=== PATIENT | female | born 1990 | race Hispanic/Latino ===

== ENCOUNTER 2017-12-03 04:19 | Emergency (ER) | payer SELFPAY ==
[2017-12-03] MEDS ORDERED: KETOROLAC 30 MG/ML INJ ONE (04:43)
[2017-12-03] MEDS ORDERED: ONDANSETRON 4 MG/2 ML VIAL ONE (04:43)
[2017-12-03 04:51] LABS: Absolute Lymphocytes (CBC) 2.5 K/uL (0.7-4.9); Absolute Monocytes 0.6 K/uL (0.1-1.3); Absolute Neutrophil 5.6 K/uL (1.8-8.0); Basophils % 0.6 % (0-1.3); Eosinophils % 2.8 % (0-4.4); Hematocrit 42.2 % (36.0-45.0); Lymphocytes % 27.4 % (15.3-44.8); MCH 30.9 pg (27.0-35.0); MPV 7.6 fL (7.6-11.3); Monocytes % 6.5 % (3.3-12.3); RBC Red Blood Cell Count 4.74 M/uL (3.86-4.86)
[2017-12-03 05:18] LABS: Albumin 4.7 g/dL (3.2-5.5); Bilirubin Direct 0.2 mg/dL (0-0.2); Bilirubin Total 0.4 mg/dL (0.3-1.2); Potassium 4.4 mEq/L (3.6-5.0)
[2017-12-03 05:23] LABS: Urine Blood NEGATIVE (NEG); Urine Glucose NEGATIVE (NEG); Urine Protein NEGATIVE (NEG); Urine pH 7.5 (5.0-7.0)
[2017-12-03 05:26] LABS: Urine Amorphous Sediment 3+ /HPF (NONE SEEN); Urine Bacteria <20 /HPF (<20); Urine RBC NONE SEEN /HPF (NONE SEEN)
[2017-12-03 05:27] LABS: Urine Culture Reflex Order NOT NEEDED
--- NOTE | 2017-12-03 06:32 | ER ---
Nurse's Notes [facility] Name: Guerda Cooper Age: 27 yrs Sex: Female : 1990 Arrival Date: 12/03/2017 Time: 04:20 Bed 6 Private MD: Diagnosis: Biliary Colic Presentation: 12/03 04:34 Presenting complaint: Patient states: "I have gallstones and the pain is getting lp1 worse"; States being seen at [place] [facility] 1 month ago and diagnosed with gallstones, unable to follow-up, pain worsening and more frequent. Transition of care: patient was not received from another setting of care. Onset of symptoms was December 03, 2017 at 01:00. Risk Assessment: Do you want to hurt yourself or someone else? Patient reports no desire to harm self or others. Initial Sepsis Screen: Does the patient meet any 2 criteria? No. Patient's initial sepsis screen is negative. Does the patient have a suspected source of infection? No. Patient's initial sepsis screen is negative. Care prior to arrival: None. 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 - Social history:: Smoking status: Patient/guardian denies using tobacco. - Ebola Screening: : No symptoms or risks identified at this time. Screenin:37 Abuse screen: Denies threats or abuse. Denies injuries from another. Nutritional lp1 screening: No deficits noted. Tuberculosis screening: No symptoms or risk factors identified. Fall Risk None identified. Assessment: 04:49 General: Appears uncomfortable, Behavior is calm, cooperative. Pain: Complains of pain mg2 in right upper quadrant Pain does not radiate. Pain currently is 10 out of 10 on a pain scale. Quality of pain is described as aching, Pain began Is intermittent. 04:50 General: Appears uncomfortable, Behavior is appropriate for age. Pain: Complains of ea pain in right upper quadrant Pain does not radiate. Pain currently is 10 out of 10 on a pain scale. Quality of pain is described as aching, stabbing, Is continuous. Neuro: Level of Consciousness is awake, alert, obeys commands, Oriented to person, place, time, situation. Cardiovascular: Heart tones S1 S2 present Patient's skin is warm and dry. Respiratory: Airway is patent Respiratory effort is even, unlabored, Respiratory pattern is regular, symmetrical, Breath sounds are clear bilaterally. GI: Abdomen is non-distended, Bowel sounds present X 4 quads. Abd is soft X 4 quads Abdomen is tender to palpation in right upper quadrant. : No signs and/or symptoms were reported regarding the genitourinary system. EENT: No signs and/or symptoms were reported regarding the EENT system. Derm: Skin is dry, Skin is normal, Skin temperature is warm. Musculoskeletal:. Musculoskeletal: Circulation, motion, and sensation intact. 05:30 Reassessment: Patient and/or family updated on plan of care and expected duration. Pain ea level reassessed. Patient is alert, oriented x 3, equal unlabored respirations, skin warm/dry/pink. 06:46 Reassessment: Patient and/or family updated on plan of care and expected duration. Pain ea level reassessed. Patient is alert, oriented x 3, equal unlabored respirations, skin warm/dry/pink. Discharge instructions given to patient, verbalized the understanding of instruction. Vital Signs: 04:35 BP 162 / 96; Pulse 81; Resp 16; Temp 98.2(O); Pulse Ox 100% on R/A; Weight 81.65 kg; lp1 Height 5 ft. 1 in. (154.94 cm); Pain 10/10; 06:21 BP 141 / 91; Pulse 80; Resp 18; Pulse Ox 100% on R/A; Pain 8/10; mg2 04:35 Body Mass Index 34.01 (81.65 kg, 154.94 cm) lp1 ED Course: 04:20 Patient arrived in ED. am2 04:25 Mey Galloway, TESFAYE is Primary Nurse. ea 04:27 Joe Pires MD is Attending Physician. ps1 04:35 Triage completed. lp1 04:35 Arm band placed on left wrist. lp1 04:37 Patient has correct armband on for positive identification. Placed in gown. Bed in low lp1 position. Call light in reach. Pulse ox on. NIBP on. 04:48 Inserted saline lock: 20 gauge in left antecubital area, using aseptic technique. Blood mg2 collected. by TESFAYE Mathias. 06:47 No provider procedures requiring assistance completed. IV discontinued, intact, ea bleeding controlled, No redness/swelling at site. Pressure dressing applied. Administered Medications: 04:47 Drug: Zofran 4 mg Route: IVP; Site: left antecubital; mg2 06:08 Follow up: Response: No adverse reaction; Nausea is decreased; Vomiting decreased mg2 04:48 Drug: TORadol 30 mg Route: IVP; Site: left antecubital; mg2 06:20 Follow up: Response: No adverse reaction; Pain is unchanged, physician notified mg2 06:43 Drug: [place] (7.5 mg-325 mg) 1 tabs Route: PO; ea 06:49 Follow up: Response: Medication administered at discharge. ea Outcome: 06:31 Discharge ordered by . ps1 06:47 Discharged to home ambulatory, with family. ea 06:47 Condition: improved 06:47 Discharge instructions given to patient, Instructed on discharge instructions, follow up and referral plans. Demonstrated understanding of instructions, follow-up care. 06:49 Patient left the ED. ea Signatures: Ana Oliva RN RN lp1 Ida Venegas am2 Mey Galloway RN RN ea Joe Pires MD MD ps1 Zachery Fuller RN RN mg2
--- NOTE | 2017-12-03 06:32 | EDPHYS ---
Physician Documentation [facility] Name: Guerda Cooper Age: 27 yrs Sex: Female : 1990 Arrival Date: 12/03/2017 Time: 04:20 Bed 6 Private MD: ED Physician Joe Pires HPI: 12/03 04:33 This 27 yrs old Female presents to ER via Unassigned with complaints of Flank ps1 Pain. 04:33 Pain localized to RUQ. Patient has a known history of biliary colic. Patient was seen ps1 and evaluated at [facility] a month ago for same symptoms and was instructed to follow up with a surgeon but has not 2/2 lack of insurance. Pain is the same. Patient states that she is only eating vegetables and has avoided fatty foods. Pain rated as severe. No fever. No jaundice. . 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 - Social history:: Smoking status: Patient/guardian denies using tobacco. - Ebola Screening: : No symptoms or risks identified at this time. ROS: 04:33 Constitutional: Negative for fever, chills, and weight loss, Eyes: Negative for injury, ps1 pain, redness, and discharge, Cardiovascular: Negative for chest pain, palpitations, and edema, Respiratory: Negative for shortness of breath, cough, wheezing, and pleuritic chest pain, : Negative for injury, bleeding, discharge, and swelling, MS/Extremity: Negative for injury and deformity, Skin: Negative for injury, rash, and discoloration. 04:33 Abdomen/GI: Positive for abdominal pain, nausea. Exam: 04:33 Constitutional: This is a well developed, well nourished patient who is awake, alert, ps1 and in no acute distress. Head/Face: Normocephalic, atraumatic. Eyes: Pupils equal round and reactive to light, extra-ocular motions intact. Lids and lashes normal. Conjunctiva and sclera are non-icteric and not injected. Chest/axilla: Normal chest wall appearance and motion. Nontender with no deformity. No lesions are appreciated. Cardiovascular: Regular rate and rhythm. No gallops, murmurs, or rubs. Normal PMI, no JVD. No pulse deficits. Respiratory: Lungs have equal breath sounds bilaterally, clear to auscultation and percussion. No rales, rhonchi or wheezes noted. No increased work of breathing, no retractions or nasal flaring. 04:33 Abdomen/GI: Inspection: abdomen appears normal, Palpation: moderate abdominal tenderness, in the right upper quadrant. Vital Signs: 04:35 BP 162 / 96; Pulse 81; Resp 16; Temp 98.2(O); Pulse Ox 100% on R/A; Weight 81.65 kg; lp1 Height 5 ft. 1 in. (154.94 cm); Pain 10/10; 06:21 BP 141 / 91; Pulse 80; Resp 18; Pulse Ox 100% on R/A; Pain 8/10; mg2 04:35 Body Mass Index 34.01 (81.65 kg, 154.94 cm) lp1 MDM: 05:10 Patient medically screened. ps1 06:25 Data reviewed: vital signs, nurses notes, lab test result(s). ED course: point of care ps1 limited ultrasound of the abdomen performed. Gallbladder stones observed. No pericolicystic fluid. GB wall .5mm. No CBD dilitation. Appears to be cholelithiasis without cholecystitis. 12/03 04:38 Order name: Urine Dipstick--Ancillary (enter results); Complete Time: 05: 2 12/03 04:38 Order name: Urine --Ancillary (enter results); Complete Time: 05:29 2 12/03 04:39 Order name: CBC with Diff; Complete Time: 05:10 ps1 12/03 04:39 Order name: Hepatic Function; Complete Time: 05: ps1 12/03 04:39 Order name: Lipase; Complete Time: 05: ps1 12/03 04:39 Order name: Urine Microscopic Only; Complete Time: 05:29 ps1 12/03 04:39 Order name: IV Saline Lock; Complete Time: 04:48 ps1 12/03 04:39 Order name: Labs collected and sent; Complete Time: 04:48 ps1 12/03 04:39 Order name: Urine Dipstick-Ancillary (obtain specimen); Complete Time: 04:48 ps1 12/03 04:39 Order name: CMP; Complete Time: 05:21 ps1 Administered Medications: 04:47 Drug: Zofran 4 mg Route: IVP; Site: left antecubital; mg2 06:08 Follow up: Response: No adverse reaction; Nausea is decreased; Vomiting decreased mg2 04:48 Drug: TORadol 30 mg Route: IVP; Site: left antecubital; mg2 06:20 Follow up: Response: No adverse reaction; Pain is unchanged, physician notified mg2 06:43 Drug: Cactus (7.5 mg-325 mg) 1 tabs Route: PO; ea 06:49 Follow up: Response: Medication administered at discharge. ea Disposition: 12/03/17 06:31 Discharged to Home. Impression: Biliary Colic. - Condition is Stable. - Discharge Instructions: Biliary Colic. - Work release form, Medication Reconciliation Form, Thank You Letter, Antibiotic Education, Prescription Opioid Use form. - Follow up: Private Physician; When: Ronald Evangelista MD [address] [place] [address]; Reason: Further diagnostic work-up, Continuance of care. - Problem is an acute exacerbation. - Symptoms are unchanged. Signatures: Dispatcher [employer] EDMS Ana Oliva RN RN lp1 Mey Galloway RN RN ea Singer, Phillip, MD MD ps1 Zachery Fuller RN RN mg2 Corrections: (The following items were deleted from the chart) 06:49 06:31 12/03/2017 06:31 Discharged to Home. Impression: Biliary Colic. Condition is ea Stable. Forms are Medication Reconciliation Form, Thank You Letter, Antibiotic Education, Prescription Opioid Use. Follow up: Private Physician; When: Ronald Evangelista MD [address] [place] [address]; Reason: Further diagnostic work-up, Continuance of care. Problem is an acute exacerbation. Symptoms are unchanged. ps1
[2017-12-03] MEDS ORDERED: HYDROCODONE/APAP 7.5/325 MG TAB ONE (06:36)
== END 2017-12-03 06:49 | disposition home or self-care (01) ==
LOC: ER 04:19
DX: K80.50 Calculus of bile duct without cholangitis or cholecystitis without obstruction (principal)
CPT/HCPCS: 36415; 80053; 80076; 81003; 81015; 81025; 83690; 85025; 96374; 96375; 99284; J2405

== ENCOUNTER 2017-12-26 00:09 | Emergency (ER) | payer SELFPAY ==
[2017-12-26] MEDS ORDERED: ONDANSETRON 4 MG/2 ML VIAL ONE (01:03)
[2017-12-26] MEDS ORDERED: NA CHLORIDE 0.9% 1,000 ML ONE (01:03)
[2017-12-26] MEDS ORDERED: FENTANYL CITR 100 MCG/2 ML ONE (01:03)
[2017-12-26 01:23] LABS: Absolute Lymphocytes (CBC) 2.2 K/uL (0.7-4.9); Absolute Monocytes 0.6 K/uL (0.1-1.3); Absolute Neutrophil 4.2 K/uL (1.8-8.0); Basophils % 0.4 % (0-1.3); Eosinophils % 2.8 % (0-4.4); Hematocrit 38.9 % (36.0-45.0); Lymphocytes % 30.7 % (15.3-44.8); MCH 31.4 pg (27.0-35.0); MCV 88.9 fL (80-100); MPV 7.4 fL (7.6-11.3); Monocytes % 7.9 % (3.3-12.3); RBC Red Blood Cell Count 4.38 M/uL (3.86-4.86)
[2017-12-26 01:36] LABS: Urine Bacteria <20 /HPF (<20); Urine Culture Reflex Order NOT NEEDED; Urine RBC NONE SEEN /HPF (NONE SEEN)
[2017-12-26 01:46] LABS: ALT/SGPT 17 U/L (12-78); AST/SGOT 12 U/L (15-37); Alkaline Phosphatase 73 U/L (45-117); Amylase Level 65 U/L (25-115); BUN Blood Urea Nitrogen 15 mg/dL (7-18); Bicarbonate 28 mmol/L (21-32); Bilirubin Direct < 0.1 mg/dL (0-0.2); Bilirubin Total 0.2 mg/dL (0.2-1.0); Glucose Level 97 mg/dL (74-106); Lipase 131 U/L (73-393); Potassium 3.8 mmol/L (3.5-5.1); Protein, Total 7.4 g/dL (6.4-8.2); Sodium Level 143 mmol/L (136-145)
[2017-12-26 02:28] LABS: Urine Blood NEGATIVE (NEG); Urine Glucose NEGATIVE (NEG); Urine Protein NEGATIVE (NEG)
--- NOTE | 2017-12-26 03:04 | EDPHYS ---
Physician Documentation [facility] Name: Guerda Cooper Age: 27 yrs Sex: Female : 1990 Arrival Date: 12/26/2017 Time: 00:11 Bed 5 Private MD: ED Physician Cristiano España HPI: 12/26 00:54 This 27 yrs old Female presents to ER via Ambulatory with complaints of Flank vu Pain. 00:54 The patient complains of pain in the right mid back. 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 - Social history:: Smoking status: Patient/guardian denies using tobacco. - Ebola Screening: : No symptoms or risks identified at this time. - Family history:: not pertinent. ROS: 00:55 Constitutional: Negative for fever, chills, and weight loss, Eyes: Negative for injury, vu pain, redness, and discharge, ENT: Negative for injury, pain, and discharge, Neck: Negative for injury, pain, and swelling, Cardiovascular: Negative for chest pain, palpitations, and edema, Respiratory: Negative for shortness of breath, cough, wheezing, and pleuritic chest pain, Back: Negative for injury and pain, : Negative for injury, bleeding, discharge, and swelling, MS/Extremity: Negative for injury and deformity, Skin: Negative for injury, rash, and discoloration, Neuro: Negative for headache, weakness, numbness, tingling, and seizure, Psych: Negative for depression, anxiety, suicide ideation, homicidal ideation, and hallucinations, Allergy/Immunology: Negative for hives, rash, and allergies, Endocrine: Negative for neck swelling, polydipsia, polyuria, polyphagia, and marked weight changes, Hematologic/Lymphatic: Negative for swollen nodes, abnormal bleeding, and unusual bruising. 00:55 Abdomen/GI: Positive for abdominal pain, of the epigastric area and right upper quadrant. Exam: 00:55 Constitutional: This is a well developed, well nourished patient who is awake, alert, vu and in no acute distress. Head/Face: Normocephalic, atraumatic. Eyes: Pupils equal round and reactive to light, extra-ocular motions intact. Lids and lashes normal. Conjunctiva and sclera are non-icteric and not injected. Cornea within normal limits. Periorbital areas with no swelling, redness, or edema. ENT: Nares patent. No nasal discharge, no septal abnormalities noted. Tympanic membranes are normal and external auditory canals are clear. Oropharynx with no redness, swelling, or masses, exudates, or evidence of obstruction, uvula midline. Mucous membranes moist. Neck: Trachea midline, no thyromegaly or masses palpated, and no cervical lymphadenopathy. Supple, full range of motion without nuchal rigidity, or vertebral point tenderness. No Meningismus. Chest/axilla: Normal chest wall appearance and motion. Nontender with no deformity. No lesions are appreciated. Cardiovascular: Regular rate and rhythm with a normal S1 and S2. No gallops, murmurs, or rubs. Normal PMI, no JVD. No pulse deficits. Respiratory: Lungs have equal breath sounds bilaterally, clear to auscultation and percussion. No rales, rhonchi or wheezes noted. No increased work of breathing, no retractions or nasal flaring. Back: No spinal tenderness. No costovertebral tenderness. Full range of motion. Skin: Warm, dry with normal turgor. Normal color with no rashes, no lesions, and no evidence of cellulitis. MS/ Extremity: Pulses equal, no cyanosis. Neurovascular intact. Full, normal range of motion. Neuro: Awake and alert, GCS 15, oriented to person, place, time, and situation. Cranial nerves II-XII grossly intact. Motor strength 5/5 in all extremities. Sensory grossly intact. Cerebellar exam normal. Normal gait. Psych: Awake, alert, with orientation to person, place and time. Behavior, mood, and affect are within normal limits. 00:55 Abdomen/GI: Inspection: abdomen appears normal, Bowel sounds: normal, Palpation: mild abdominal tenderness, in the right upper quadrant, Liver: no appreciated palpable abnormalities, Hernia: not appreciated. Vital Signs: 00:26 BP 132 / 112; Pulse 78; Resp 18; Temp 97.9; Pulse Ox 98% on R/A; Weight 81.65 kg (R); ea Height 5 ft. 1 in. (154.94 cm); Pain 8/10; 00:40 BP 120 / 97; Pulse 77; Resp 16; Pulse Ox 98% on R/A; ao 02:55 BP 145 / 95; Pulse 73; Resp 16; Pulse Ox 99% on R/A; ao 00:26 Body Mass Index 34.01 (81.65 kg, 154.94 cm) ea MDM: 00:44 Patient medically screened. [facility] 00:55 Data reviewed: vital signs, nurses notes, lab test result(s). [facility] 12/26 00:54 Order name: Amylase, Serum; Complete Time: 02:53 [facility] 12/26 00:54 Order name: Basic Metabolic Panel; Complete Time: 02:53 [facility] 12/26 00:54 Order name: CBC with Diff; Complete Time: 02:53 [facility] 12/26 00:54 Order name: Creatinine for Radiology; Complete Time: 02:53 [facility] 12/26 00:54 Order name: Hepatic Function; Complete Time: 02:53 [facility] 12/26 00:54 Order name: Lipase; Complete Time: 02:53 [facility] 12/26 00:48 Order name: Urine Dipstick-Ancillary (obtain specimen); Complete Time: 01:22 vu 12/26 00:54 Order name: Urine Microscopic Only; Complete Time: 02:53 vu 12/26 01:18 Order name: Urine Dipstick--Ancillary (enter results); Complete Time: 02:53 ms 12/26 01:18 Order name: Urine --Ancillary (enter results); Complete Time: 02:53 ms 12/26 00:48 Order name: Urine Test (obtain specimen); Complete Time: 01:22 [facility] 12/26 00:54 Order name: IV Saline Lock; Complete Time: 01:22 [facility] 12/26 00:54 Order name: Labs collected and sent; Complete Time: 01:22 [facility] Administered Medications: 01:10 Drug: NS 0.9% 1000 ml Route: IV; Rate: 1 bolus; Site: right antecubital; ao 02:34 Follow up: IV Status: Completed infusion ao 01:10 Drug: fentaNYL (PF) 25 mcg Route: IVP; Site: right antecubital; ao 02:34 Follow up: Response: No adverse reaction ao 01:12 Drug: Zofran 4 mg Route: IVP; Site: right antecubital; ao 02:34 Follow up: Response: No adverse reaction ao 02:31 Drug: fentaNYL (PF) 25 mcg Route: IVP; Site: right antecubital; ao 03:10 Follow up: Response: No adverse reaction ao Disposition: 12/26/17 03:03 Discharged to Home. Impression: Cholelithiasis, Abdominal tenderness. - Condition is Stable. - Discharge Instructions: Abdominal Pain, Adult, Biliary Colic, Cholelithiasis, Cholelithiasis, [id number], Abdominal Pain, Adult, [id number]. - Prescriptions for Bentyl 20 mg Oral Tablet - take 1 tablet by ORAL route every 6 hours As needed; 20 tablet. Pepcid 20 mg Oral Tablet - take 1 tablet by ORAL route every 12 hours for 10 days; 20 tablet. Zofran 4 mg Oral Tablet - take 1 tablet by ORAL route every 12 hours As needed; 20 tablet. - Medication Reconciliation Form, Thank You Letter, Antibiotic Education, Prescription Opioid Use, Work release form form. - Follow up: Private Physician; When: 2 - 3 days; Reason: Recheck today's complaints, Re-evaluation by your physician. Follow up: [facility]; When: 2 - 3 days; Reason: Recheck today's complaints, Re-evaluation by your physician. - Problem is new. - Symptoms have improved. Signatures: Dispatcher [employer] EDMS Cristiano España MD MD cha Therrien, Shelly, J2EE ARCHITECT-C J2EE ARCHITECT-Csnw Jose Zuniga, RN RN Mey Villa RN RN ea Corrections: (The following items were deleted from the chart) 03:13 03:03 12/26/2017 03:03 Discharged to Home. Impression: Cholelithiasis; Abdominal ao tenderness. Condition is Stable. Discharge Instructions: Abdominal Pain, Adult, Cholelithiasis, Cholelithiasis, [id number], Abdominal Pain, Adult, [id number]. Prescriptions for Bentyl 20 mg Oral Tablet - take 1 tablet by ORAL route every 6 hours As needed; 20 tablet, Pepcid 20 mg Oral Tablet - take 1 tablet by ORAL route every 12 hours for 10 days; 20 tablet, Zofran 4 mg Oral Tablet - take 1 tablet by ORAL route every 12 hours As needed; 20 tablet. and Forms are Medication Reconciliation Form, Thank You Letter, Antibiotic Education, Prescription Opioid Use. Follow up: Private Physician; When: 2 - 3 days; Reason: Recheck today's complaints, Re-evaluation by your physician. Follow up: [facility]; When: 2 - 3 days; Reason: Recheck today's complaints, Re-evaluation by your physician. Problem is new. Symptoms have improved. vu
--- NOTE | 2017-12-26 03:04 | ER ---
Nurse's Notes [facility] Name: Guerda Cooper Age: 27 yrs Sex: Female : 1990 Arrival Date: 12/26/2017 Time: 00:11 Bed 5 Private MD: Diagnosis: Cholelithiasis;Abdominal tenderness Presentation: 12/26 00:23 Presenting complaint: Patient states: Patient reports pain to right upper abdomen that ea started at 2100 that is constant, sharp stabbing pain, reports she had one vomiting episode at 2200. Transition of care: patient was not received from another setting of care. Onset of symptoms was December 26, 2017. Risk Assessment: Do you want to hurt yourself or someone else? Patient reports no desire to harm self or others. Initial Sepsis Screen: Does the patient meet any 2 criteria? No. Patient's initial sepsis screen is negative. Does the patient have a suspected source of infection? No. Patient's initial sepsis screen is negative. Care prior to arrival: None. 00:23 Method Of Arrival: Ambulatory ea 00:23 Acuity: PRABHU 3 ea Triage Assessment: 00:26 General: Appears in no apparent distress. Behavior is calm, cooperative, appropriate ea for age. Pain: Complains of pain in right upper quadrant Pain does not radiate. Pain currently is 8 out of 10 on a pain scale. Quality of pain is described as sharp, stabbing, Is continuous. 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 - Social history:: Smoking status: Patient/guardian denies using tobacco. - Ebola Screening: : No symptoms or risks identified at this time. - Family history:: not pertinent. Screenin:25 Abuse screen: Denies threats or abuse. Nutritional screening: No deficits noted. ea Tuberculosis screening: No symptoms or risk factors identified. Fall Risk None identified. Assessment: 00:25 General: Appears in no apparent distress. comfortable, Behavior is calm, cooperative, ao appropriate for age. Pain: Complains of pain in abdomen. Neuro: Level of Consciousness is awake, alert, obeys commands, Oriented to person, place, time, situation, Appropriate for age Moves all extremities. Full function Speech is normal, Facial symmetry appears normal, Pupils are PERRLA. Cardiovascular: Capillary refill < 3 seconds Patient's skin is warm and dry. Respiratory: Airway is patent Respiratory effort is even, unlabored, Respiratory pattern is regular, symmetrical. GI: Abdomen is flat, non-distended. : No signs and/or symptoms were reported regarding the genitourinary system. EENT: No signs and/or symptoms were reported regarding the EENT system. Derm: Skin is pink, warm \T\ dry. normal, Skin temperature is warm. Musculoskeletal: Circulation, motion, and sensation intact. Range of motion:. 01:40 Reassessment: Patient appears in no apparent distress at this time. Patient and/or ao family updated on plan of care and expected duration. Pain level reassessed. Patient is alert, oriented x 3, equal unlabored respirations, skin warm/dry/pink. 02:55 Reassessment: Patient appears in no apparent distress at this time. Patient and/or ao family updated on plan of care and expected duration. Pain level reassessed. Patient is alert, oriented x 3, equal unlabored respirations, skin warm/dry/pink. Waiting on DR Jerez. Vital Signs: 00:26 BP 132 / 112; Pulse 78; Resp 18; Temp 97.9; Pulse Ox 98% on R/A; Weight 81.65 kg (R); ea Height 5 ft. 1 in. (154.94 cm); Pain 8/10; 00:40 BP 120 / 97; Pulse 77; Resp 16; Pulse Ox 98% on R/A; ao 02:55 BP 145 / 95; Pulse 73; Resp 16; Pulse Ox 99% on R/A; ao 00:26 Body Mass Index 34.01 (81.65 kg, 154.94 cm) ea ED Course: 00:00 Inserted saline lock: 20 gauge in right antecubital area, using aseptic technique. ao Blood collected. 00:11 Patient arrived in ED. am2 00:18 Jose Zuniga, RN is Primary Nurse. ao 00:25 Triage completed. ea 00:28 Patient has correct armband on for positive identification. Bed in low position. Call ea light in reach. Side rails up X 1. 00:28 Arm band placed on right wrist. Patient placed in an exam room, on a stretcher, on ea pulse oximetry. 00:44 Cristiano España MD is Attending Physician. vu 03:02 Tone Queen MD is Referral Physician. vu 03:12 No provider procedures requiring assistance completed. IV discontinued, intact, ao bleeding controlled, No redness/swelling at site. Pressure dressing applied. Administered Medications: 01:10 Drug: NS 0.9% 1000 ml Route: IV; Rate: 1 bolus; Site: right antecubital; ao 02:34 Follow up: IV Status: Completed infusion ao 01:10 Drug: fentaNYL (PF) 25 mcg Route: IVP; Site: right antecubital; ao 02:34 Follow up: Response: No adverse reaction ao 01:12 Drug: Zofran 4 mg Route: IVP; Site: right antecubital; ao 02:34 Follow up: Response: No adverse reaction ao 02:31 Drug: fentaNYL (PF) 25 mcg Route: IVP; Site: right antecubital; ao 03:10 Follow up: Response: No adverse reaction ao Outcome: 03:03 Discharge ordered by . vu 03:12 Discharged to home ambulatory. ao 03:12 Condition: stable 03:12 Discharge instructions given to patient, Instructed on discharge instructions, follow up and referral plans. Demonstrated understanding of instructions, follow-up care, medications. 03:13 Patient left the ED. ao Signatures: Cristiano España MD MD cha Ortiz, Alex RN RN Ida Cueto Elena, RN RN alysia Corrections: (The following items were deleted from the chart) 02:55 00:40 Reassessment: Patient appears in no apparent distress at this time. Patient ao and/or family updated on plan of care and expected duration. Pain level reassessed. Patient is alert, oriented x 3, equal unlabored respirations, skin warm/dry/pink. ao
== END 2017-12-26 03:13 | disposition home or self-care (01) ==
LOC: ER 00:09
DX: K80.20 Calculus of gallbladder without cholecystitis without obstruction (principal)
CPT/HCPCS: 36415; 80048; 80076; 81003; 81015; 81025; 82150; 83690; 85025; 96361; 96374; 96375; 99284; J2405; J3010; J7030

== ENCOUNTER 2018-02-05 06:59 | Observation (INO) | payer SELFPAY ==
[2018-02-05] MEDS ORDERED: ONDANSETRON 4 MG/2 ML VIAL ONE ×2 (07:27→15:39)
[2018-02-05] MEDS ORDERED: MORPHINE 4 MG/ML SYR ONE ×3 (07:27→15:57)
[2018-02-05] MEDS ORDERED: NA CHLORIDE 0.9% 500 ML ONE (07:27)
[2018-02-05 07:43] LABS: Urine Blood TRACE (NEG); Urine Glucose NEGATIVE (NEG); Urine Protein NEGATIVE (NEG)
[2018-02-05 07:46] LABS: Urine Amorphous Sediment 1+ /HPF (NONE SEEN); Urine Bacteria <20 /HPF (<20); Urine Culture Reflex Order REFLEXED
[2018-02-05 07:58] LABS: ALT/SGPT 17 U/L (12-78); AST/SGOT 10 U/L (15-37); Absolute Lymphocytes (CBC) 1.4 K/uL (0.7-4.9); Absolute Monocytes 0.4 K/uL (0.1-1.3); Absolute Neutrophil 4.6 K/uL (1.8-8.0); Alkaline Phosphatase 76 U/L (45-117); BUN Blood Urea Nitrogen 13 mg/dL (7-18); Basophils % 0.3 % (0-1.3); Bicarbonate 27 mmol/L (21-32); Bilirubin Direct < 0.1 mg/dL (0-0.2); Bilirubin Total 0.3 mg/dL (0.2-1.0); Eosinophils % 1.7 % (0-4.4); Glucose Level 104 mg/dL (74-106); Lipase 110 U/L (73-393); Lymphocytes % 21.4 % (15.3-44.8); MCH 31.3 pg (27.0-35.0); MCV 89.9 fL (80-100); MPV 7.7 fL (7.6-11.3); Monocytes % 6.6 % (3.3-12.3); Potassium 3.8 mmol/L (3.5-5.1); Protein, Total 7.7 g/dL (6.4-8.2); RBC Red Blood Cell Count 4.56 M/uL (3.86-4.86); Sodium Level 140 mmol/L (136-145)
--- NOTE | 2018-02-05 08:50 | ER ---
Nurse's Notes [facility] Name: Guerda Cooper Age: 27 yrs Sex: Female : 1990 Arrival Date: 02/05/2018 Time: 07:01 Bed 15 Private MD: Diagnosis: Cholelithiasis;Intractable abdominal pain Presentation: 02/05 07:15 Presenting complaint: Patient states: c/o gallbladder pain that started yesterday with em N/V, denies fever, SOB, or CP. Transition of care: patient was not received from another setting of care. Onset of symptoms was February 04, 2018. Risk Assessment: Do you want to hurt yourself or someone else? Patient reports no desire to harm self or others. Initial Sepsis Screen: Does the patient meet any 2 criteria? No. Patient's initial sepsis screen is negative. Does the patient have a suspected source of infection? No. Patient's initial sepsis screen is negative. Care prior to arrival: None. 07:15 Method Of Arrival: Ambulatory em 07:15 Acuity: PRABHU 3 iw Triage Assessment: 07:17 General: Appears in no apparent distress. uncomfortable, Behavior is calm, cooperative. em Pain: Complains of pain in right upper quadrant. GI: Abdomen is round non-distended, Reports nausea, vomiting. 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 - Social history:: Smoking status: Patient/guardian denies using tobacco. - Family history:: not pertinent. - Ebola Screening: : Patient negative for fever greater than or equal to 101.5 degrees Fahrenheit, and additional compatible Ebola Virus Disease symptoms Patient denies exposure to infectious person Patient denies travel to an Ebola-affected area in the 21 days before illness onset No symptoms or risks identified at this time. - Hospitalizations: : No recent hospitalization is reported. Screenin:19 Abuse screen: Denies threats or abuse. Nutritional screening: No deficits noted. em Tuberculosis screening: No symptoms or risk factors identified. Fall Risk None identified. Assessment: 07:26 General: Appears in no apparent distress. uncomfortable, Behavior is calm, appropriate em for age. Pain: Complains of pain in right upper quadrant Pain currently is 7 out of 10 on a pain scale. Neuro: Level of Consciousness is awake, alert, obeys commands, Oriented to person, place, time, situation. Cardiovascular: Capillary refill < 3 seconds Patient's skin is warm and dry. Cardiovascular: Denies chest pain, shortness of breath. Respiratory: Airway is patent Respiratory effort is even, unlabored, Respiratory pattern is regular, symmetrical. GI: Abdomen is round non-distended, Bowel sounds present X 4 quads. Reports nausea, vomiting. : Urine is clear. EENT: No signs and/or symptoms were reported regarding the EENT system. Derm: Skin is intact, Skin is pink, warm \T\ dry. Musculoskeletal: Range of motion: intact in all extremities. 07:45 Reassessment: Patient appears in no apparent distress at this time. I agree with above iw assessment by Dewey Soria LVN. 08:40 Reassessment: Patient appears in no apparent distress at this time. Patient and/or em family updated on plan of care and expected duration. Pain level reassessed. Patient is alert, oriented x 3, equal unlabored respirations, skin warm/dry/pink. rates pain 6/10, Dr. Gupta at bedside, pt is NPO at this time. 09:00 Reassessment: Patient appears in no apparent distress at this time. Dr. Archibald at em bedside, pt consent form signed. 09:40 Reassessment: Patient appears in no apparent distress at this time. Patient and/or em family updated on plan of care and expected duration. Pain level reassessed. Patient is alert, oriented x 3, equal unlabored respirations, skin warm/dry/pink. family at beside. Vital Signs: 07:17 BP 129 / 96; Pulse 80; Resp 16; Temp 98.1(O); Pulse Ox 100% on R/A; Weight 81.65 kg; em Height 5 ft. 2 in. (157.48 cm); Pain 7; 07:44 BP 130 / 101; Pulse 70; Resp 16; Pulse Ox 99% on R/A; dh3 08:40 BP 124 / 95; Pulse 80; Resp 16; Pulse Ox 100% on R/A; Pain 6/10; em 07:17 Body Mass Index 32.92 (81.65 kg, 157.48 cm) em ED Course: 07:01 Patient arrived in ED. am2 07:08 Axel Gupta MD is Attending Physician. rn 07:11 Dewey Soria LVN is Primary Nurse. em 07:17 Arm band placed on. EKG completed in triage. Results shown to MD. em 07:19 Patient has correct armband on for positive identification. Placed in gown. Bed in low em position. Call light in reach. 07:25 Urine collected: clean catch specimen, clear. dh3 07:31 Initial lab(s) drawn, by me, sent to lab. Inserted saline lock: 20 gauge in left dh3 antecubital area, using aseptic technique. Blood collected. 07:38 No provider procedures requiring assistance completed. em 07:40 US Abdomen Limited In Process Unspecified. EDMS 07:41 Ultrasound completed. Patient tolerated well. aa4 07:46 Triage completed. iw 08:49 Yoel Archibald MD is Hospitalizing Provider. rn 09:54 Patient admitted, IV remains in place. em Administered Medications: 07:43 Drug: NS 0.9% 500 ml Route: IV; Rate: bolus; Site: left antecubital; em 08:42 Follow up: IV Status: Completed infusion; IV Intake: 500ml em 07:46 Drug: morphine 4 mg Route: IVP; Site: left antecubital; iw 08:42 Follow up: Response: No adverse reaction em 07:46 Drug: Zofran 4 mg Route: IVP; Site: left antecubital; iw 08:42 Follow up: Response: No adverse reaction; Nausea is decreased em 09:00 Drug: Rocephin - (cefTRIAXone) 1 grams Route: IVPB; Infused Over: 30 mins; Site: left iw antecubital; 09:19 Follow up: Response: No adverse reaction; IV Status: Completed infusion; IV Intake: 10mlem 09:06 Drug: morphine 4 mg Route: IVP; Site: left antecubital; em 09:50 Follow up: Response: No adverse reaction; Pain is unchanged, physician notified em 09:06 Drug: Flagyl 500 mg Volume: 100 ml; Route: IVPB; Rate: 200 ml/hr; Infused Over: 30 em mins; Site: left antecubital; 09:50 Follow up: IV Status: Infusion continued upon admission; IV Intake: 50ml em 09:06 Drug: NS 0.9% 1000 ml Route: IV; Rate: 125 ml/hr; Site: left antecubital; em 09:57 Follow up: IV Status: Infusion continued upon admission; IV Intake: 50ml em Intake: 08:42 IV: 500ml; Total: 500ml. em 09:19 IV: 10ml; Total: 510ml. em 09:50 IV: 50ml; Total: 560ml. em 09:57 IV: 50ml; Total: 610ml. em Outcome: 08:49 Decision to Hospitalize by Provider. rn 09:55 Admitted to Med/surg accompanied by tech, via wheelchair, room 229, with chart, Report em called to TESFAYE Virk 09:55 Condition: good 09:55 Instructed on the need for admit, Demonstrated understanding of instructions. 09:56 Patient left the ED. em Signatures: Dispatcher [employer] EDDewey Aldrich, PROOF COINS INSPECTOR PROOF COINS INSPECTOR em Margarita Navarrete, Ida Jama RN, Roman, MD MD rn Moreno, Amanda am2 Herrera, Deanna [facility]
--- NOTE | 2018-02-05 08:50 | EDPHYS ---
Physician Documentation [facility] Name: Guerda Cooper Age: 27 yrs Sex: Female : 1990 Arrival Date: 02/05/2018 Time: 07:01 Bed 15 Private MD: ED Physician Axel Gupta HPI: 02/05 07:14 This 27 yrs old Female presents to ER via Unassigned with complaints of gall rn bladder pain, Nausea/Vomiting. 07:14 The patient presents to the emergency department with nausea, vomiting, abdominal pain, rn of the right upper quadrant. Onset: The symptoms/episode began/occurred last night. The symptoms are aggravated by nothing. The symptoms are alleviated by nothing. Severity of symptoms: At their worst the symptoms were moderate in the emergency department the symptoms are unchanged. The patient has experienced similar episodes in the past. Reports RUQ abd pain and nausea/vomiting since last night, has had gallbladder problems in past, has not f/u with surgeon, this time pain constant and worse than last time.. 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 - Social history:: Smoking status: Patient/guardian denies using tobacco. - Family history:: not pertinent. - Ebola Screening: : Patient negative for fever greater than or equal to 101.5 degrees Fahrenheit, and additional compatible Ebola Virus Disease symptoms Patient denies exposure to infectious person Patient denies travel to an Ebola-affected area in the 21 days before illness onset No symptoms or risks identified at this time. - Hospitalizations: : No recent hospitalization is reported. ROS: 07:14 Constitutional: Negative for fever, chills, and weight loss, Eyes: Negative for injury, rn pain, redness, and discharge, Neck: Negative for injury, pain, and swelling, Cardiovascular: Negative for chest pain, palpitations, and edema, Respiratory: Negative for shortness of breath, cough, wheezing, and pleuritic chest pain, Abdomen/GI: + abd pain/nausea/vomiting Back: Negative for injury and pain, MS/Extremity: Negative for injury and deformity, Skin: Negative for injury, rash, and discoloration, Neuro: Negative for headache, weakness, numbness, tingling, and seizure. Exam: 07:14 Constitutional: This is a well developed, well nourished patient who is awake, alert, rn and in no acute distress. Head/Face: Normocephalic, atraumatic. Cardiovascular: Regular rate and rhythm with a normal S1 and S2. No gallops, murmurs, or rubs. Normal PMI, no JVD. No pulse deficits. Respiratory: Lungs have equal breath sounds bilaterally, clear to auscultation and percussion. No rales, rhonchi or wheezes noted. No increased work of breathing, no retractions or nasal flaring. Abdomen/GI: soft, mild tenderness RUQ, neg hudson, no rebound, + voluntary guarding Back: No spinal tenderness. No costovertebral tenderness. Full range of motion. MS/ Extremity: Pulses equal, no cyanosis. Neurovascular intact. Full, normal range of motion. Equal circumference. Neuro: Awake and alert, GCS 15, oriented to person, place, time, and situation. Cranial nerves II-XII grossly intact. Motor strength 5/5 in all extremities. Sensory grossly intact. Vital Signs: 07:17 BP 129 / 96; Pulse 80; Resp 16; Temp 98.1(O); Pulse Ox 100% on R/A; Weight 81.65 kg; em Height 5 ft. 2 in. (157.48 cm); Pain 7/10; 07:44 BP 130 / 101; Pulse 70; Resp 16; Pulse Ox 99% on R/A; dh3 08:40 BP 124 / 95; Pulse 80; Resp 16; Pulse Ox 100% on R/A; Pain 6/10; em 07:17 Body Mass Index 32.92 (81.65 kg, 157.48 cm) em MDM: 07:08 Patient medically screened. rn 08:39 Differential diagnosis: Nonspecific abd pain, gastritis, cholecystitis, pancreatitis, rn gastroenteritis. Data reviewed: vital signs, nurses notes, lab test result(s), radiologic studies, ultrasound, and as a result, I will admit patient. Counseling: I had a detailed discussion with the patient and/or guardian regarding: the historical points, exam findings, and any diagnostic results supporting the discharge/admit diagnosis, lab results, radiology results, the need for further work-up and treatment in the hospital. Response to treatment: the patient's symptoms have mildly improved after treatment, and as a result, I will admit patient. Admission orders: after a detailed discussion of the patient's condition and case, the admit orders are written by me. ED course: Pt with cholelithiasis, normal bloodwork, + persistent pain, consulted Dr. Archibald, states will plan for surgery today if can get her on schedule. Pt NPO. Abx ordered.. 02/05 07:13 Order name: Basic Metabolic Panel; Complete Time: 08:22 rn 02/05 07:13 Order name: CBC with Diff; Complete Time: 08: rn 02/05 07:13 Order name: Hepatic Function; Complete Time: 08: rn 02/05 07:13 Order name: Lipase; Complete Time: 08: rn 02/05 07:13 Order name: Urine Microscopic Only; Complete Time: 08:22 rn 02/05 07:32 Order name: Urine Dipstick--Ancillary (enter results) bd 02/05 07:13 Order name: US Abdomen Limited; Complete Time: 08:59 rn 02/05 07:32 Order name: Urine --Ancillary (enter results) bd 02/05 07:32 Order name: Urine Dipstick-Ancillary; Complete Time: 08:22 EDMS 02/05 07:32 Order name: Urine --Ancillary; Complete Time: 08:22 EDMS 02/05 07:48 Order name: Urine Culture EDPA 02/05 07:13 Order name: Urine Test (obtain specimen); Complete Time: 07:32 rn 02/05 07:13 Order name: IV Saline Lock; Complete Time: 07: rn 02/05 07:13 Order name: Labs collected and sent; Complete Time: 07:32 rn 02/05 07:13 Order name: Urine Dipstick-Ancillary (obtain specimen); Complete Time: 07:32 rn 02/05 07:13 Order name: NPO; Complete Time: 07:32 rn Administered Medications: 07:43 Drug: NS 0.9% 500 ml Route: IV; Rate: bolus; Site: left antecubital; em 08:42 Follow up: IV Status: Completed infusion; IV Intake: 500ml em 07:46 Drug: morphine 4 mg Route: IVP; Site: left antecubital; iw 08:42 Follow up: Response: No adverse reaction em 07:46 Drug: Zofran 4 mg Route: IVP; Site: left antecubital; iw 08:42 Follow up: Response: No adverse reaction; Nausea is decreased em 09:00 Drug: Rocephin - (cefTRIAXone) 1 grams Route: IVPB; Infused Over: 30 mins; Site: left iw antecubital; 09:19 Follow up: Response: No adverse reaction; IV Status: Completed infusion; IV Intake: 10mlem 09:06 Drug: morphine 4 mg Route: IVP; Site: left antecubital; em 09:50 Follow up: Response: No adverse reaction; Pain is unchanged, physician notified em 09:06 Drug: Flagyl 500 mg Volume: 100 ml; Route: IVPB; Rate: 200 ml/hr; Infused Over: 30 em mins; Site: left antecubital; 09:50 Follow up: IV Status: Infusion continued upon admission; IV Intake: 50ml em 09:06 Drug: NS 0.9% 1000 ml Route: IV; Rate: 125 ml/hr; Site: left antecubital; em 09:57 Follow up: IV Status: Infusion continued upon admission; IV Intake: 50ml em Disposition: 02/05/18 08:49 Hospitalization ordered by Yoel Archibald for Observation. Preliminary diagnosis are Cholelithiasis, Intractable abdominal pain. - Bed requested for Telemetry/MedSurg (observation). - Status is Observation. em - Condition is Stable. - Problem is an ongoing problem. - Symptoms have improved. UTI on Admission? No Signatures: Dispatcher [employer] EDPA Flor Evans bd Dewey Soria, METAL DOOR ASSEMBLER METAL DOOR ASSEMBLER em Margarita Navarrete RN RN iw Axel Gupta MD MD patternmaker pressure cast: (The following items were deleted from the chart) 09:30 08:49 Hospitalization Ordered by Yoel Archibald MD for Observation. Preliminary diagnosis bd is Cholelithiasis; Intractable abdominal pain. Bed requested for Telemetry/MedSurg (observation). Status is Observation. Condition is Stable. Problem is an ongoing problem. Symptoms have improved. UTI on Admission? No. rn 09:56 09:30 02/05/2018 08:49 Hospitalization Ordered by Yoel Archibald MD for Observation. em Preliminary diagnosis is Cholelithiasis; Intractable abdominal pain. Bed requested for Telemetry/MedSurg (observation). Status is Observation. Condition is Stable. Problem is an ongoing problem. Symptoms have improved. UTI on Admission? No. bd
--- NOTE | 2018-02-05 08:56 | RAD REPORT ---
EXAM DESCRIPTION: US - Abdomen Exam Limited - 02/05/2018 7:42 am CLINICAL HISTORY: Right upper quadrant pain Preliminary findings provided at the time of the study. COMPARISON: None. FINDINGS: Multiple gallstones are seen collecting near the gallbladder neck and in the fundus. Gallb ladder size is normal. There is no wall thickening or pericholecystic fluid. No common duct stone or biliary tree dilatation identified. IMPRESSION: Multi stone cholelithiasis. No other gallbladder or biliary tree finding.
[2018-02-05] MEDS ORDERED: METRONIDAZOLE 500mg IVPB 500 MG/100 ML BAG IV ONE (09:00)
[2018-02-05] MEDS ORDERED: CEFTRIAXONE/SWI 1gm 1 GM/10 ML SYR ONE (09:00)
[2018-02-05] MEDS ORDERED: NA CHLORIDE 0.9% 1,000 ML ONE (09:00)
[2018-02-05] MEDS ORDERED: ONDANSETRON 4 MG/2 ML VIAL IV PRN ×2 (09:49→15:38)
[2018-02-05] MEDS: D5 0.45 NS 1,000 ML IV SCH ×3 (09:49→20:30)
[2018-02-05] MEDS ORDERED: MORPHINE 4 MG/ML SYR IV PRN (09:49)
[2018-02-05] MEDS: CEFOXITIN/SWI 1gm 1 GM/10 ML SYR IV SCH ×2 (11:32→14:16)
[2018-02-05] MEDS ORDERED: Ringers Lactate 1,000 ML IV ONE (12:54)
[2018-02-05] MEDS ORDERED: PROPOFOL 200 MG/20 ML VIAL IV ONE (13:25)
[2018-02-05] MEDS ORDERED: ROCURONIUM 50 MG/5 ML VIAL IV ONE (13:25)
[2018-02-05] MEDS ORDERED: LIDOCAINE 1% MPF 2 ML AMPULE ONE (13:25)
[2018-02-05] MEDS ORDERED: MIDAZOLAM HCL 2 MG/2 ML INJ ONE (13:25)
[2018-02-05] MEDS ORDERED: ONDANSETRON HCL 40 MG/20 ML VIAL ONE (13:25)
[2018-02-05] MEDS ORDERED: FENTANYL CITR 100 MCG/2 ML ONE (13:25)
--- NOTE | 2018-02-05 14:15 | PREOPHP ---
Date of Admission: 02/05/2018 Reason: Abdominal pain. History Of Present Illness: The patient is a 27-year-old female, who has had biliary colic for the l ast 3 months and had been seen in the emergency room three times with epigastric right upper quadrant pain going between the shoulder blades, and then associated with nausea and vomiting, some bloating, belching and heartburn. No diarrhea or constipation. No blood in her stool. No dysuria or hematur ia. No sore throat, runny nose, cough, headaches, or dizziness. No chest pain. No fever or chills. Review of Systems: Otherwise unremarkable. Past Medical History: Negative. Past Surgical History: Negative. Allergies: NO ALLERGIES. Social History: She denies smoking or drinking. Family History: Noncontributory. Physical Examination: Vital Signs: Stable. She is afebrile. She is awake, alert, oriented x3. Head and Neck: Cranial nerves 2 through 12 are grossly within normal limits. No neck masses. No JV D. Throat clear. Neck is supple. No evidence of icterus. Chest: Clear. Heart: S1, S2. Abdomen: Soft, nondistended. Positive bowel sounds. Positive right upper quadrant tenderness. Min imal rebound. No rigidity or guarding. Extremities: Adequately perfused. Nontender. Neuro: Nonfocal. Laboratory Data: White count is normal. LFT, amylase, and lipase are within normal limits. Ultraso und shows multi stone cholelithiasis with collecting near the gallbladder neck. Assessment: Acute and chronic cholecystitis and cholelithiasis. Plan: Admit n.p.o., IV fluid, IV antibiotic, to the OR for laparoscopic cholecystectomy possible ope n. The patient understands the risks, benefits, and alternatives and agrees to procedure. /MODL Voice ID: [id number]
[2018-02-05] MEDS: Ringers Lactate 1,000 ML IV ONE ×2 (14:20→14:30)
[2018-02-05] MEDS ORDERED: FENTANYL CITR 250 MCG/5 ML ONE (14:22)
[2018-02-05] MEDS ORDERED: DEXAMETHASONE 10 MG/ML VIAL ONE (14:26)
[2018-02-05] MEDS ORDERED: DIPHENHYDRAMINE 50 MG/ML VIAL ONE (14:40)
[2018-02-05] MEDS ORDERED: GLYCOPYRROLATE 0.2 MG/ML SYR ONE (14:40)
[2018-02-05] MEDS ORDERED: NEOSTIGMINE 1 MG/ML -5 ML SYRINGE ONE (14:40)
--- NOTE | 2018-02-05 14:48 | P.OP ---
Preoperative diagnosis: Acute and Chronic Cholecystitis and Choleelithiasis Postoperative diagnosis: same Primary procedure: Lap Fatuma Anesthesia: General Estimated blood loss: min Specimen: GB Findings: as above Complications: None Transferred to: Recovery Room Condition: Good
[2018-02-05] MEDS: MEPERIDINE HCL 50 MG/ML AMP ONE ×2 (15:19→15:24)
[2018-02-05] MEDS ORDERED: PROMETHAZINE 25 MG/ML VIAL ONE (15:37)
[2018-02-05] MEDS: HYDROCODONE/APAP 7.5/325 MG TAB PO PRN (17:44)
[2018-02-05] MEDS ORDERED: CEFOXITIN 1 GM in NA CHLORIDE 0.9% 100 ML IVPB SCH (18:00)
[2018-02-05] MEDS: HYDROMORPHONE HCL 1 MG/ML INJ IV PRN (20:29)
[2018-02-06] MEDS: HYDROMORPHONE HCL 1 MG/ML INJ IV PRN ×2 (00:19→05:42)
[2018-02-06] MEDS: CEFOXITIN/SWI 1gm 1 GM/10 ML SYR IV SCH ×3 (00:20→12:21)
--- NOTE | 2018-02-06 01:43 | OP ---
Date of Procedure: 02/05/2018 Surgeon: Yoel Archibald MD Preoperative Diagnosis: Acute on chronic cholecystitis and cholelithiasis. Postoperative Diagnosis: Acute on chronic cholecystitis and cholelithiasis. Procedure: Laparoscopic cholecystectomy. Estimated Blood Loss: Minimal. Specimen: Gallbladder finding as above. Anesthesia: General. Complications: None. Disposition: The patient tolerated the procedure in stable condition and taken to Recovery in good g eneral condition. Procedure In Detail: The patient was brought to the OR and placed in supine position. General anest hesia began. The patient was prepped and draped in usual sterile fashion. Marcaine 0.5% was infiltr ated locally. A 15 blade was used to make a 2 cm supraumbilical midline incision. Subcutaneous tiss ue divided. The fascia was identified and divided. A #1 Vicryl stay suture was placed. Peritoneal cavity was entered with blunt dissection. A 12-mm trocar was placed into the peritoneal cavity under direct vision. Pneumoperitoneum was established and then three 5-mm trocars were placed, one in the epigastrium, just to the right of midline and 2 in the right subcostal region. Laparoscopy revealed acute on chronic inflammation of the gallbladder with some minimal adhesions which were taken down w ith sharp and blunt dissection. Bleeding controlled with cautery. Fundus retracted superiorly. Inf undibulum was identified and retracted inferolaterally. Cystic duct and cystic artery were clearly i dentified with blunt dissection, clips placed. Both structures were divided. Cautery was used to re move the gallbladder from the liver bed with bleeding on the liver bed controlled with cautery. The gallbladder was retrieved through the umbilicus via an EndoCatch bag. The right upper quadrant was i rrigated. Effluent was clear. No evidence of bleeding or bile leakage appreciated. Subsequently, a ll trocars were removed in direct vision. Stay suture was used to close the fascial defect. Subcuta neous wounds were irrigated. Bleeding controlled with cautery. A 3-0 chromic was used to reapproxim ate the subcutaneous tissue and demarco were used to close the skin. Sterile dressing was applied. The patient was awakened and taken to Recovery in good general condition. WILMA/CATARINO Voice ID: [id number] Report ID: [id number]
[2018-02-06] MEDS: D5 0.45 NS 1,000 ML IV SCH (04:36)
[2018-02-06 06:17] LABS: Absolute Lymphocytes (CBC) 0.7 K/uL (0.7-4.9); Absolute Monocytes 0.6 K/uL (0.1-1.3); Absolute Neutrophil 10.6 K/uL (1.8-8.0); Basophils % 0.1 % (0-1.3); Hematocrit 37.2 % (36.0-45.0); MCH 31.2 pg (27.0-35.0); MCV 89.1 fL (80-100); MPV 8.1 fL (7.6-11.3); Monocytes % 4.7 % (3.3-12.3); RBC Red Blood Cell Count 4.17 M/uL (3.86-4.86)
[2018-02-06 07:54] LABS: Blood Morphology Comment NOT SEEN (NOT SEEN); Platelet Estimate ADEQ; Urine White Blood Cell Casts OK
[2018-02-06] MEDS: HYDROCODONE/APAP 7.5/325 MG TAB PO PRN ×2 (09:34→16:13)
== END 2018-02-06 17:15 | disposition home or self-care (01) ==
LOC: ER 06:59 → ERHOLD 08:51 → 2ND 09:47
PROVIDERS: ADMIT Surgery; ATTEND Surgery
PROC: 0FT44ZZ Resection of Gallbladder, Percutaneous Endoscopic Approach (ICD-10-PCS; principal; 2018-02-05 12:15)
DX: K80.12 Calculus of gallbladder with acute and chronic cholecystitis without obstruction (principal)
CPT/HCPCS: 36415; 76705; 80048; 80076; 81003; 81015; 81025; 83690; 85025; 87086; 87088; 88304; 96361; 96365; 96375; 99285; G0378; J0696; J1100; J1170; J2001; J2175; J2250; J2405; J2550; J2710; J3010; J7030

== ENCOUNTER 2018-02-21 18:08 | Emergency (ER) | payer SELFPAY ==
--- NOTE | 2018-02-21 18:34 | ER ---
Nurse's Notes [facility] Name: Guerda Cooper Age: 27 yrs Sex: Female : 1990 Arrival Date: 02/21/2018 Time: 18:11 Bed 20 Private MD: None, None Diagnosis: Encounter for screening, unspecified Presentation: 02/21 18:15 Presenting complaint: Patient states: Would like her surgical demarco removed from aj umbilicus. S/P lap rita 10 days ago. Patient reports she removed her other demarco at home because she was unable to afford a follow up appointment. Transition of care: patient was not received from another setting of care. Onset of symptoms was February 21, 2018. Risk Assessment: Do you want to hurt yourself or someone else? Patient reports no desire to harm self or others. Initial Sepsis Screen: Does the patient meet any 2 criteria? No. Patient's initial sepsis screen is negative. Does the patient have a suspected source of infection? No. Patient's initial sepsis screen is negative. Care prior to arrival: None. 18:15 Method Of Arrival: Ambulatory 18:15 Acuity: PRABHU 5 Triage Assessment: 18:17 General: Appears in no apparent distress. comfortable, Behavior is calm, cooperative, aj appropriate for age. Pain: Denies pain. Neuro: Level of Consciousness is awake, alert, obeys commands, Oriented to person, place, time, situation, Appropriate for age. Respiratory: Airway is patent Respiratory effort is even, unlabored, Respiratory pattern is regular, symmetrical. Derm: Skin is intact, is healthy with good turgor, Skin is pink, warm \T\ dry. normal, Wound noted umbilical area. 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 - Social history:: Smoking status: Patient/guardian denies using tobacco. - Ebola Screening: : Patient negative for fever greater than or equal to 101.5 degrees Fahrenheit, and additional compatible Ebola Virus Disease symptoms Patient denies exposure to infectious person Patient denies travel to an Ebola-affected area in the 21 days before illness onset No symptoms or risks identified at this time. Screenin:36 Abuse screen: Denies threats or abuse. Denies injuries from another. Nutritional iw screening: No deficits noted. Tuberculosis screening: No symptoms or risk factors identified. Fall Risk None identified. Vital Signs: 18:17 BP 144 / 94; Pulse 86; Resp 16; Temp 98.1; Pulse Ox 97% on R/A; Weight 81.65 kg; Height aj 5 ft. 1 in. (154.94 cm); 18:17 Body Mass Index 34.01 (81.65 kg, 154.94 cm) aj ED Course: 18:11 Patient arrived in ED. sb2 18:12 None, None is Private Physician. sb2 18:17 Triage completed. aj 18:17 Arm band placed on right wrist. Patient placed in an exam room. aj 18:21 Maria Isabel Beach FNP-C [facility]. kb 18:21 Kenney Ramirez MD is Attending Physician. kb 18:30 Patient has correct armband on for positive identification. iw 18:37 No provider procedures requiring assistance completed. Patient did not have IV access iw during this emergency room visit. 18:38 Margarita Navarrete, RN is Primary Nurse. iw Administered Medications: No medications were administered Outcome: 18:34 Discharge ordered by . kb 18:38 Discharged to home ambulatory. iw 18:38 Condition: good iw 18:38 Discharge instructions given to patient, Instructed on need to follow up with Dr. mcdowell to have demarco removed, instructions given by ALICE Nicolas 18:39 Patient left the ED. iw Signatures: Maria Isabel Beach FNP-C FNP-Ckb Myers, Amanda, RN RN Margarita Mtz, RN RN Rocío Cole sb2
--- NOTE | 2018-02-21 18:35 | EDPHYS ---
Physician Documentation [facility] Name: Guerda Cooper Age: 27 yrs Sex: Female : 1990 Arrival Date: 02/21/2018 Time: 18:11 Bed 20 Private MD: None, None ED Physician Kenney Ramirez HPI: 02/21 18:37 This 27 yrs old Female presents to ER via Ambulatory with complaints of Suture kb Removal. 18:37 The patient has demarco on the umbilical area. Previous treatment: The patient was kb initially treated 10 day(s) ago, the care was rendered at [facility], Treatment type: The patient's original treatment included demarco. Sutures/demarco progress: The patient has no c/o's. The wound is well-healing with no redness, swelling, discharge, or dehiscence reported. The patient has not experienced similar symptoms in the past. The patient has been recently seen by a physician: Dr. Archibald 10 day(s) ago. Pt has lap rita [address] Archibald. Came in today to have demarco removed from surgical incision sites.. 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 - Social history:: Smoking status: Patient/guardian denies using tobacco. - Ebola Screening: : Patient negative for fever greater than or equal to 101.5 degrees Fahrenheit, and additional compatible Ebola Virus Disease symptoms Patient denies exposure to infectious person Patient denies travel to an Ebola-affected area in the 21 days before illness onset No symptoms or risks identified at this time. ROS: 18:35 Constitutional: Negative for fever, chills, and weight loss, Cardiovascular: Negative kb for chest pain, palpitations, and edema, Respiratory: Negative for shortness of breath, cough, wheezing, and pleuritic chest pain, Abdomen/GI: Negative for abdominal pain, nausea, vomiting, diarrhea, and constipation, MS/Extremity: Negative for injury and deformity, Neuro: Negative for headache, weakness, numbness, tingling, and seizure. 18:35 Skin: Positive for of the umbilical area, demarco intact. Exam: 18:35 Constitutional: This is a well developed, well nourished patient who is awake, alert, kb and in no acute distress. Head/Face: Normocephalic, atraumatic. Chest/axilla: Normal chest wall appearance and motion. Nontender with no deformity. No lesions are appreciated. Cardiovascular: Regular rate and rhythm with a normal S1 and S2. No gallops, murmurs, or rubs. Normal PMI, no JVD. No pulse deficits. Respiratory: Lungs have equal breath sounds bilaterally, clear to auscultation and percussion. No rales, rhonchi or wheezes noted. No increased work of breathing, no retractions or nasal flaring. Abdomen/GI: Soft, non-tender, with normal bowel sounds. No distension or tympany. No guarding or rebound. No evidence of tenderness throughout. MS/ Extremity: Pulses equal, no cyanosis. Neurovascular intact. Full, normal range of motion. Neuro: Awake and alert, GCS 15, oriented to person, place, time, and situation. Cranial nerves II-XII grossly intact. Motor strength 5/5 in all extremities. Sensory grossly intact. Cerebellar exam normal. Normal gait. 18:35 Skin: Wound recheck: Staple laceration closure: the wound is healing well, the edges are well approximated, no evidence of dehiscence, no drainage, no erythema, no swelling. Vital Signs: 18:17 BP 144 / 94; Pulse 86; Resp 16; Temp 98.1; Pulse Ox 97% on R/A; Weight 81.65 kg; Height aj 5 ft. 1 in. (154.94 cm); 18:17 Body Mass Index 34.01 (81.65 kg, 154.94 cm) aj MDM: 18:22 Patient medically screened. kb 18:35 Data reviewed: vital signs, nurses notes. Data interpreted: Pulse oximetry: on room air kb is 97 %. Interpretation: normal. Counseling: I had a detailed discussion with the patient and/or guardian regarding: the historical points, exam findings, and any diagnostic results supporting the discharge/admit diagnosis, the need for outpatient follow up, a family practitioner, to return to the emergency department if symptoms worsen or persist or if there are any questions or concerns that arise at home. Administered Medications: No medications were administered Disposition: 02/21/18 18:34 Discharged to Home. Impression: Encounter for screening, unspecified. - Condition is Stable. - Medication Reconciliation Form, Thank You Letter, Antibiotic Education, Prescription Opioid Use form. - Follow up: Emergency Department; When: As needed; Reason: Worsening of condition. Follow up: Private Physician; When: 2 - 3 days; Reason: Recheck today's complaints, Continuance of care, Re-evaluation by your physician. Signatures: Maria Isabel Beach, ULISES-C FRYLINE ATTENDANT-Ida Hou, RN RN Margarita Mtz RN RN iw Corrections: (The following items were deleted from the chart) 18:39 18:34 02/21/2018 18:34 Discharged to Home. Impression: Encounter for screening, iw unspecified. Condition is Stable. Forms are Medication Reconciliation Form, Thank You Letter, Antibiotic Education, Prescription Opioid Use. Follow up: Emergency Department; When: As needed; Reason: Worsening of condition. Follow up: Private Physician; When: 2 - 3 days; Reason: Recheck today's complaints, Continuance of care, Re-evaluation by your physician. kb
== END 2018-02-21 18:39 | disposition home or self-care (01) ==
LOC: ER 18:08
DX: Z48.02 Encounter for removal of sutures (principal)
CPT/HCPCS: 99281

== ENCOUNTER 2022-07-06 10:53 | Emergency (ER) | payer SELFPAY ==
--- OUTSIDE RECORDS SUMMARY | 2022-07-06 10:56 | XMS REPORT | Continuity of Care Document ---
:1990 Author Organization [facility] t Address [address] [place] [address] Care Team Providers Name Role Phone PCP, PATIENT DOES NOT HAVE A Primary Care Physician Unavaila ble NIK HENDRIX Attending Clinician Unavailable Nik Hendrix MD Attending Clinician NIK HENDRIX Admitting Clinician Unavailable Problems This patient has no known problems. Allergies, Adverse Reactions, Alerts Allergy Allergy Status Severity Reaction(s) Onset Inactive Treating Comm ents Source Name Type Date Date Clinician NO KNOWN Drug Active [facility] ALLERGIE Class [facility]y [facility] [place] [facility] [place] Social History Social Habit Start Date Stop Date Quantity Comments Source Exposure to 2022-05-27 2022-06-06 Unable to assess Univers ity of SARS-CoV-2 00:00:00 02:51:00 [facility] (event) Branch Sex Assigned At [birth year] Universit y of 00:00:00 00:00:00 [facility] Branch Smoking Status Start Date Stop Date Source Tobacco smoking consumption [facility] Medications Ordered Filled Start Stop Current Ordering Indication Dosage Frequency Signature Comments Components Source Medication Medication Date Date Medication? Clinician (SIG) Name Name D5W 0.9% 2021-06 Yes 1000mL at 150 Unive rs NaCl (NS) 2-21 mL/hr, ity of IV infusion 10:15: 1,000 mL, [place] 1,000 mL 00 IV Medical Infusion, Branch CONTINUOUS , Starting on Sat06/06/22 at 0415, Until Discontinu ed, TERESSA NaCl 0.9% 2022-1 2022- No 1000mL at 999 Uni vers (NS) bolus 08-07 mL/hr, ity of infusion 09:00: 09:51 1,000 mL, [place] 1,000 mL 00 :00 IV Medical Piggyback, Branch ONCE, 1 dose, On Sat06/06/22 at 0300, STAT LORazepam 2021-06- No 2mg 2 mg, Slow U nivers (ATIVAN) 08-07 IV Push, ity of injection 2 08:15: 08:14 ONCE, 1 [place] mg 00 :00 dose, On Medical Wed Branch 06/06/22 at 0215, STAT LORazepam 2021-06- No 2mg 2 mg, Slow U nivers (ATIVAN) 08-07 IV Push, ity of injection 2 08:15: 08:00 ONCE, 1 [place] mg 00 :00 dose, On Medical Wed Branch 06/06/22 at 0215, STAT acetaminoph 2018-0 Yes 1{tbl} Take 1 Un car[place] en-codeine 4-14 tablet by ity of 300-30 mg 00:00: mouth [place] tablet 00 every 4 Medical (four) Branch hours as needed for Pain (scale 7-10). ondansetron 2018-0 Yes 4mg Take 1 Univ ers 4 mg 4-14 tablet by ity of disintegrat 00:00: mouth [place] ing tablet 00 every 8 Medica l (eight) Branch hours as needed for Nausea and Vomiting (N/V). traMADOL 2018-0 Yes 50mg Take 1 Univers (ULTRAM) 50 2-26 tablet by ity of mg tablet 00:00: mouth [place] 00 every 6 Medical (six) Branch hours as needed for Pain (scale 7-10). ondansetron 2018-0 Yes 4mg Take 1 Univ ers (ZOFRAN, 2-26 tablet by ity of HYDROCHLORI 00:00: mouth [place] DE,) 4 mg 00 every 8 Medical tablet (eight) Branch hours as needed for Nausea and Vomiting (N/V). Vital Signs Vital Name Observation Time Observation Value Comments Source Systolic blood 2022-06-06 13:30:00 122 mm[Hg] Univer sity of pressure [facility] Branch Diastolic blood 2022-06-06 13:30:00 84 mm[Hg] Unive rsity of pressure [facility] Heart rate 2022-06-06 13:30:00 125 /min [facility] Respiratory rate 2022-06-06 13:30:00 19 /min [facility] Oxygen saturation in 2022-06-06 13:30:00 99 /min [facility] Arterial blood by [facility] Pulse oximetry [place] Body temperature 2022-06-06 08:21:23 37 Kika [facility] Body weight 2022-06-06 08:11:00 81.647 kg [facility] Procedures Procedure Date / Time Performing Clinician Source Performed XR KNEE <3 VW LEFT 2022-06-06 12:58:[address] [facility] CT CERVICAL SPINE WO 2022-06-06 09:44:16 Nik Hendrix [facility] CT HEAD WO CONTRAST 2022-06-06 09:44:16 Nik Hendrix [facility] TEST, SERUM 2022-06-06 08:28:00 Nik Hendrix [facility] COMP. METABOLIC PANEL 2022-06-06 08:28:00 Nik Hendrix [facility] ([id number]) [facility] ETHANOL 2022-06-06 08:28:00 Nik Hendrix [facility] URINE DRUG (IMMUNOASSAY) 2022-06-06 08:28:00 Nik Hendrix [facility] DRUG [facility] SCREEN CBC WITH DIFF 2022-06-06 08:28:00 Nik Hendrix [facility] URINALYSIS 2022-06-06 08:28:00 Nik Hendrix [facility] Encounters Start End Encounter Admission Attending Care Care Encounter Source Date/Time Date/Time Type Type Clinicians Facility Department ID 2022-06-06 2022-06-06 Emergency X DOLORES HENDRIX ERT [id number] Univers 02:10:00 08:08:00 NIK monico [facility] 2022-06-06 2022-06-06 Emergency DOLORES Hendrix [id number] Univers 02:10:00 08:08:00 Nik PALACIO [id number] i ty [facility] [id number] [facility] [id number] [facility] 084 Branch Results Test Description Test Time Test Comments Results Result Comments Source CBC WITH DIFF 2022-06-06 09:09:23 Test Item Value Reference Range Interpretation Comme nts WBC (test code = 6690-2) See_Comment [A utomated message] The system which ge nerated this result transmit tawanda reference range: 4.30 - 1 1.10 10*3/?L. The reference r ling was not used to interpr et this result as normal/abnor mal. RBC (test code = 789-8) See_Comment [Au tomated message] The system which ge nerated this result transmit tawanda reference range: 3.93 - 5 .25 10*6/?L. The reference r ling was not used to interpr et this result as normal/abnor mal. HGB (test code = 718-7) 15.1 g/dL 11.6-15.0 H HCT (test code = 4544-3) 44.7 % 35.7-45.2 MCV (test code = 787-2) 95.3 fL 80.6-95.5 MCH (test code = 785-6) 32.2 pg 25.9-32.8 MCHC (test code = 786-4) 33.8 g/dL 31.6-35.1 RDW-SD (test code = 59972-9) 44.5 fL 39.0-49.9 RDW-CV (test code = 788-0) 12.9 % 12.0-15.5 PLT (test code = 777-3) See_Comment [Au tomated message] The system which ge nerated this result transmit tawanda reference range: 166 - 35 8 10*3/?L. The reference range was not used to interpret th is result as normal/abnormal . MPV (test code = 41020-3) 9.6 fL 9.5-12.9 NRBC/100 WBC (test code = See_Comment [ Automated message] The [id number]) system which ge nerated this result transmit tawanda reference range: 0.0 - 10 .0 /100 WBCs. The reference r ling was not used to interpr et this result as normal/abnor mal. NRBC x10^3 (test code = See_Comment [Au tomated message] The [id number]) system which ge nerated this result transmit tawanda reference range: 10*3/?L. The reference range was not u sed to interpret this result as normal/abnormal . GRAN MAT (NEUT) % (test code 46.3 % = 770-8) IMM GRAN % (test code = 0.70 % 2377033552) LYMPH % (test code = 736-9) 42.5 % MONO % (test code = 5905-5) 5.6 % EOS % (test code = 713-8) 4.0 % BASO % (test code = 706-2) 0.9 % GRAN MAT x10^3(ANC) (test 4.43 10*3/uL 1.88-7.09 code = 4370360296) IMM GRAN x10^3 (test code = 0.07 10*3/uL 0.00-0.06 H 6825219848) LYMPH x10^3 (test code = 4.08 10*3/uL 1.32-3.29 H 731-0) MONO x10^3 (test code = 0.54 10*3/uL 0.33-0.92 742-7) EOS x10^3 (test code = 0.38 10*3/uL 0.03-0.39 711-2) BASO x10^3 (test code = 0.09 10*3/uL 0.01-0.07 H 704-7) Lab Interpretation (test Abnormal code = 86206-9) [facility] [id number] 08:56:34 Test Item Value Reference Range Interpretation Comments PREG SERUM (test code Negative = 4816108514) UYEN (test code = UYEN) Less than 10 IU/L. ?If low titer or ectopic is suspected, resubmit specimen in 48-72 hours. 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 METABOLIC PANEL ([id number])2022-06-06 08:52:57 Test Item Value Reference Range Interpretation Comments NA (test code = 147 mmol/L 135-145 H 9614248590) K (test code = 4.8 mmol/L 3.5-5.0 5710309031) CL (test code = 112 mmol/L 98-108 H 5733736738) CO2 TOTAL (test code = 19 mmol/L 23-31 L 2474432948) AGAP (test code = 2-16 9743642421) BUN (test code = 11 mg/dL 7-23 5821278038) GLUCOSE (test code = 110 mg/dL 70-110 6759656831) CREATININE (test code = 0.82 mg/dL 0.50-1.04 5310691779) TOTAL BILI (test code = 0.6 mg/dL 0.1-1.4 5495350347) CALCIUM (test code = 9.0 mg/dL 8.6-10.6 3900006210) T PROTEIN (test code = 8.0 g/dL 6.3-8.2 7227901254) ALBUMIN (test code = 5.1 g/dL 3.5-5.0 H 2255376574) ALK PHOS (test code = 97 U/L 34-122 4930058107) ALTv (test code = 33 U/L 5-35 1742-6) AST(SGOT) (test code = 77 U/L 13-40 H 1278340816) eGFR (test code = mL/min/1.73m2 2530805952) UYEN (test code = UYEN) Association of Glomerular Filtration Rate (GFR) and Staging of Kidney Disease* + --+ --+ ------+| GFR (mL/min/1.73 m2) ?| With Kidney Damage ?| ?Without Kidney Damage+ --------+ --------+ +| ?>90 ?| ?Stage one ?| ? Normal ?+ ---+ ---+ -------+| ?60-89 ?| ?Stage two ?| ? Decreased GFR ? + --+ --+ ------+| ?30-59 ?| ?Stage three ?| ? Stage three ? + --+ --+ ------+| ?15-29 ?| ?Stage four ? | ? Stage four ?+ ---+ ---+ -------+| ?<15 (or dialysis) ? ?| ?Stage five ? | ? Stage five ?+ ---+ ---+ -------+ *Each stage assumes the associated GFR level has been in effect for at least three months. ?Stages 1 to 5, with or without kidney disease, indicate chronic kidney disease. Notes: Determination of stages one and two (with eGFR >59mL/min/1.73 m2) requires estimation of kidney damage for at least three months as defined by structural or functional abnormalities of the kidney, manifested by either:Pathological abnormalities or Markers of kidney damage (including abnormalities in the composition of the blood or urine or abnormalities in imaging tests). Lab Interpretation Abnormal (test code = 17212-2) [facility]"
[2022-07-06] MEDS ORDERED: NA CHLORIDE 0.9% 1,000 ML ONE (11:53)
[2022-07-06] MEDS ORDERED: METOCLOPRAMIDE 10 MG/2mL INJ ONE (11:53)
[2022-07-06] MEDS ORDERED: DIPHENHYDRAMINE 50 MG/ML VIAL ONE (11:53)
--- NOTE | 2022-07-06 12:15 | RAD REPORT ---
EXAM DESCRIPTION: CT - Head Brain Wo Cont - 07/06/2022 11:22 am CLINICAL HISTORY: Headache COMPARISON: None TECHNIQUE: Computed axial tomography of the head was obtained. IV contrast was not requested. All CT scans are performed using dose optimization technique as appropriate and may include automated exposure control or mA/KV adjustment according to patient size. FINDINGS: Image 7 demonstrates a linear area of increased density within the anterior left frontal l obe. The ventricles are normal in caliber. No extra-axial fluid collection is noted. No significant hypodensity within the brain noted. Fluid within the sinuses/ mastoids is not seen. IMPRESSION: Small linear area of increased density within the anterior left frontal lobe. This is eq uivocal for a tiny subarachnoid bleed. It is recommended that the patient have an MRI of the brain in cluding gradient echo sequences for further evaluation The exam was discussed with Myron in the Emergency Room
[2022-07-06 12:19] LABS: Urine Blood Negative (Negative); Urine Glucose Negative (Negative); Urine Protein Negative (Negative); Urine Specific Gravity 1.015 (1.005-1.030); Urine pH 8.5 (5.0-7.0)
[2022-07-06 12:35] LABS: Urine Specific Gravity/Preg 1.015 (1.005-1.030)
[2022-07-06 12:54] LABS: Absolute Lymphocytes (CBC) 2.1 K/uL (0.7-4.9); Lymphocytes % 31.8 % (15.3-44.8); MCV 96.9 fL (80-100); RBC Red Blood Cell Count 3.92 M/uL (3.86-4.86)
[2022-07-06 13:07] LABS: Potassium 3.8 mmol/L (3.5-5.1)
[2022-07-06 14:09] LABS: Protime INR 1.03
--- NOTE | 2022-07-06 15:38 | RAD REPORT ---
EXAM DESCRIPTION: MRI - Brain Wo Cont - 07/06/2022 3:08 pm CLINICAL HISTORY: headache, vomiting COMPARISON: CT Head Wo Cont dated 07/06/2022 TECHNIQUE: Sagittal T1-weighted images were obtained along with axial PD, heavily T2-weighted and T2 -FLAIR images. Axial DWI and ADC mapping sequences were also obtained along with coronal heavily T2-w eighted images. FINDINGS: No intracranial hemorrhage, mass or acute infarction. There is no edema or shift of midlin e structures. No extra-axial fluid collections. Newman-matter/white matter junction is preserved. Signa l voids are seen as a normal finding in the major intracranial vessels. No signal abnormality is seen in the anterior frontal lobe region as a correlate to the CT finding. Overall no signal abnormalitie s are seen. It is favored that the linear signal abnormality in the CT study is and artifact rather t swanson subarachnoid hemorrhage. No globe or orbital content abnormality. No sella or supra sella abnormality. No tonsillar ectopia. Mastoid air cells and paranasal sinuses are clear. IMPRESSION: Noncontrast MRI examination shows no abnormality. After review of the CT and the MRI examinations, it is favored that the linear hyperdensity on the CT study is an artifact rather than subarachnoid hemorrhage.
--- NOTE | 2022-07-06 16:11 | EDPHYS ---
Physician Documentation [facility] Name: Guerda Cooper Age: 32 yrs Sex: Female : 1990 Arrival Date: 07/06/2022 Time: 10:56 Bed 15 Private MD: ED Physician Luis Burk HPI: 07/06 11:11 This 32 yrs old Female presents to ER via Ambulatory with complaints of jmm Headache, Vomiting, Weakness. 11:11 The patient complains of pain to the forehead. Onset: The symptoms/episode jmm began/occurred gradually, 1 day(s) ago. Associated signs and symptoms: Pertinent positives: vomiting, Pertinent negatives: fever, vision changes, vision loss. Headache History: The patient has had previous headaches and this one is similar to previous episodes. Is a 32-year-old female with history of migraines that presents emerged department with headache with multiple episodes of vomiting. Patient states she has had similar headaches in the past, most recently 3 months ago. 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 - Social history:: Smoking status: Patient denies any tobacco usage or history of. ROS: 11:11 Constitutional: Negative for fever, chills, and weight loss, Cardiovascular: Negative jmm for chest pain, palpitations, and edema, Respiratory: Negative for shortness of breath, cough, wheezing, and pleuritic chest pain. 11:11 Neuro: Positive for headache. 11:11 All other systems are negative. Exam: 11:11 Constitutional: This is a well developed, well nourished patient who is awake, alert, jmm and in no acute distress. Head/Face: atraumatic. Eyes: EOMI, no conjunctival erythema appreciated ENT: Moist Mucus Membranes Neck: Trachea midline, Supple Chest/axilla: Normal chest wall appearance and motion. Cardiovascular: Regular rate and rhythm. No edema appreciated Respiratory: Normal respirations, no respiratory distress appreciated Abdomen/GI: Non distended Back: Normal ROM Skin: General appearance color normal MS/ Extremity: Moves all extremities, no obvious deformities appreciated, no edema noted to the lower extremities Neuro: Awake and alert Psych: Behavior is normal, Mood is normal, Patient is cooperative and pleasant Vital Signs: 11:05 BP 137 / 100; Pulse 68; Resp 18; Temp 98.4; Pulse Ox 100% on R/A; Weight 75.3 kg; iw Height 5 ft. 1 in. (154.94 cm); 12:12 BP 127 / 103; Pulse 76; Resp 16; Pulse Ox 100% ; jh5 15:53 BP 130 / 96; Pulse 72; Resp 16; Pulse Ox 100% ; jh5 11:05 Body Mass Index 31.37 (75.30 kg, 154.94 cm) iw MDM: 11:11 Patient medically screened. [facility] 16:09 Data reviewed: vital signs, nurses notes. Discussion of test interpretation with [facility] radiology: I had a discussion with radiology regarding a test interpretation. concern for small sah, recommends MRI for further evaluation. Counseling: I had a detailed discussion with the patient and/or guardian regarding: the historical points, exam findings, and any diagnostic results supporting the discharge/admit diagnosis, lab results, radiology results, the need for outpatient follow up, to return to the emergency department if symptoms worsen or persist or if there are any questions or concerns that arise at home. 07/06 11:12 Order name: CBC with Diff; Complete Time: 13:01 [facility] 07/06 11:12 Order name: BMP; Complete Time: 13:10 [facility] 07/06 11:12 Order name: CT Head Brain wo Cont; Complete Time: 12:23 [facility] 07/06 12:19 Order name: Urine Dipstick-Ancillary; Complete Time: 12:23 [facility] 07/06 12:21 Order name: Urine --Ancillary (enter results); Complete Time: 12:38 07/06 13:01 Order name: PT-INR; Complete Time: 14:09 [facility] 07/06 11:12 Order name: Urine Test (obtain specimen); Complete Time: 12:19 [facility] 07/06 11:12 Order name: Saline Lock; Complete Time: 12:07 [facility] 07/06 12:10 Order name: MRI - Brain Wo Cont; Complete Time: 15:49 [facility] 07/06 12:37 Order name: Labs - recollect needed; Complete Time: 12:44 ss Administered Medications: 12:03 Drug: NS 0.9% 1000 ml Route: IV; Rate: 1 bolus; Site: right antecubital; 5 12:03 Drug: Reglan (metoCLOPramide) 20 mg Route: IVP; Site: right antecubital; [facility] 12:03 Drug: diphenhydrAMINE 12.5 mg Route: IVP; Site: right antecubital; [facility] Disposition: 16:58 Co-signature as Attending Physician, Luis Burk DO I reviewed the patient's care ms3 provided by the Advanced Practice Provider and agree with the diagnosis and treatment plan. Disposition Summary: 07/06/22 16:10 Discharge Ordered Location: Home jm Condition: Stable jmm Diagnosis - Headache jmm Followup: jmm - With: Marvel Plunkett MD - When: 2 - 3 days - Reason: Recheck today's complaints, Continuance of care, Re-evaluation by your physician Discharge Instructions: - Discharge Summary Sheet [facility] - General Headache Without Cause jm Forms: - Medication Reconciliation Form [facility] - Thank You Letter jmm - Antibiotic Education jmm - Work release form jm - Prescription Opioid Use [facility] Signatures: Dispatcher [employer] Myron Swain PA PA jmm Williams, Irene, RN Keisha Lepe RN Luis Armando DO DO ms3 Georgette Michaud RN RN jh5
--- NOTE | 2022-07-06 16:11 | ER ---
Nurse's Notes [facility] Name: Guerda Cooper Age: 32 yrs Sex: Female : 1990 Arrival Date: 07/06/2022 Time: 10:56 Bed 15 Private MD: Diagnosis: Headache Presentation: 07/06 11:05 Chief complaint: Patient states: has been vomiting and has a bad headache since iw yesterday after eating a salad, also she noticed her right arm is tingly and her right hand looks swollen since yesterday. Initial Sepsis Screen: Does the patient meet any 2 criteria? No. Patient's initial sepsis screen is negative. Does the patient have a suspected source of infection? No. Patient's initial sepsis screen is negative. Risk Assessment: Do you want to hurt yourself or someone else? Patient reports no desire to harm self or others. Onset of symptoms was July 05, 2022. 11:05 Method Of Arrival: Ambulatory iw 11:05 Acuity: PRABHU 3 iw 12:12 Coronavirus screen: Vaccine status: Patient reports receiving the 2nd dose of the covid jh5 vaccine. Client denies travel out of the [place] in the last 14 days. Ebola Screen: Patient negative for fever greater than or equal to 101.5 degrees Fahrenheit, and additional compatible Ebola Virus Disease symptoms Patient denies exposure to infectious person. Patient denies travel to an Ebola-affected area in the 21 days before illness onset. Triage Assessment: 12:11 Headache History: The patient has had previous headaches and this one is similar to jh5 previous episodes. General: Appears in no apparent distress. Behavior is calm, cooperative, appropriate for age. Pain: Pain currently is 6 out of 10 on a pain scale. Pain began gradually, Also complains of nausea. Neuro: No deficits noted. 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 - Social history:: Smoking status: Patient denies any tobacco usage or history of. Screenin:11 [facility] ED Fall Risk Assessment (Adult) History of falling in the last 3 months, jh5 including since admission No falls in past 3 months (0 pts). Abuse screen: Denies threats or abuse. Denies injuries from another. Nutritional screening: No deficits noted. Tuberculosis screening: No symptoms or risk factors identified. Vital Signs: 11:05 BP 137 / 100; Pulse 68; Resp 18; Temp 98.4; Pulse Ox 100% on R/A; Weight 75.3 kg; iw Height 5 ft. 1 in. (154.94 cm); 12:12 BP 127 / 103; Pulse 76; Resp 16; Pulse Ox 100% ; jh5 15:53 BP 130 / 96; Pulse 72; Resp 16; Pulse Ox 100% ; jh5 11:05 Body Mass Index 31.37 (75.30 kg, 154.94 cm) ED Course: 10:56 Patient arrived in ED. as 10:59 Myron Reed PA is PHCP. [facility] 10:59 Luis Burk DO is Attending Physician. [facility] 11:06 Triage completed. iw 11:07 Arm band placed on. iw 11:23 CT Head Brain wo Cont In Process Unspecified. EDMS 12:10 Inserted saline lock: 20 gauge in right antecubital area, using aseptic technique. jh5 12:11 Patient has correct armband on for positive identification. Call light in reach. Side 5 rails up X 1. 12:11 No provider procedures requiring assistance completed. jh5 15:10 MRI - Brain Wo Cont In Process Unspecified. EDMS 16:10 Marvel Plunkett MD is Referral Physician. [facility] 16:22 IV discontinued, intact, bleeding controlled, No redness/swelling at site. Pressure 5 dressing applied. Administered Medications: 12:03 Drug: NS 0.9% 1000 ml Route: IV; Rate: 1 bolus; Site: right antecubital; 5 12:03 Drug: Reglan (metoCLOPramide) 20 mg Route: IVP; Site: right antecubital; 5 12:03 Drug: diphenhydrAMINE 12.5 mg Route: IVP; Site: right antecubital; 5 Medication: 12:12 VIS not applicable for this client. 5 Outcome: 16:10 Discharge ordered by . [facility] 16:22 Discharged to home ambulatory. [facility] 16:22 Condition: good 16:22 Discharge instructions given to patient, Instructed on discharge instructions, follow up and referral plans. medication usage, safety practices, Demonstrated understanding of instructions, follow-up care, medications. 16:22 Patient left the ED. jh5 Signatures: Dispatcher [employer] EDMS Myron Reed PA PA jmm Martinez, Amelia as Williams, Irene, RN RN Georgette Michaud RN RN jh5
[2022-07-06 16:40] VITALS: TEMP 98.4; O2SAT 100
[2022-07-06 16:51] VITALS: BP 130/96
== END 2022-07-06 16:22 | disposition home or self-care (01) ==
LOC: ER 10:53
DX: R51.9 Headache, unspecified (principal); R11.10 Vomiting, unspecified
CPT/HCPCS: 36415; 70450; 70551; 80048; 81003; 81025; 85025; 85610; 96374; 96375; 99283; J1200; J2765; J7030

== ENCOUNTER 2023-02-11 11:35 | Emergency (ER) | payer SELFPAY ==
--- OUTSIDE RECORDS SUMMARY | 2023-02-11 11:38 | XMS REPORT | Continuity of Care Document ---
:1990 Author Organization [facility] t Address [address] [place] [address] Care Team Providers Name Role Phone PCP, [...] Active Univers ALLERGIE Class ity of S [facility] Social History Social Habit Start Date Stop Date Quantity Comments Source Exposure to 2022-05-27 2022-06-06 Unable to assess Univers ity of SARS-CoV-2 00:00:00 02:51:00 [facility] (event) Branch Sex Assigned At [birth year] Universit y of 00:00:00 00:00:00 [facility] Smoking Status Start Date Stop Date Source Tobacco smoking consumption Univ ersity of [facility] unknown Branch Medications Ordered Filled Start Stop [...] 0415, Until Discontinu ed, TERESSA NaCl 0.9% 2021-06 No 1000mL at 999 Uni vers (NS) [...] 13:30:00 122 mm[Hg] Univer sity of pressure [facility] Diastolic blood 2022-06-06 13:30:00 84 mm[Hg] Unive rsity of [facility] Heart rate 2022-06-06 13:30:00 125 /min [facility] Respiratory rate 2022-06-06 13:30:00 19 /min [facility] Oxygen saturation in 2022-06-06 13:30:00 99 /min [facility] Arterial blood by [facility] Pulse oximetry [place] Body temperature 2022-06-06 08:21:23 37 Kika [facility] Body weight 2022-06-06 08:11:00 81.647 kg [facility] Procedures Procedure Date / Time Performing Clinician Source Performed XR KNEE <3 VW LEFT 2022-06-06 12:58:23 Nik Hendrix [facility] CT CERVICAL SPINE WO 2022-06-06 09:44:16 Nik Hendrix [facility] CT HEAD WO CONTRAST 2022-06-06 09:44:16 Nik Hendrix [facility] TEST, SERUM 2022-06-06 08:28:00 Nik Hendrix [facility] COMP. METABOLIC PANEL 2022-06-06 08:28:00 Nik Hendrix [facility] ([id number]) [facility] ETHANOL 2022-06-06 08:28:00 Nik Hendrix [facility] URINE DRUG (IMMUNOASSAY) 2022-06-06 08:28:00 Nik Hendrix [facility] DRUG [facility] SCREEN CBC WITH DIFF 2022-06-06 08:28:00 Nik Hendrix [facility] URINALYSIS 2022-06-06 08:28:00 Nik Hendrix [facility] Encounters Start End Encounter Admission Attending Care Care Encounter Source Date/Time Date/Time Type Type Clinicians Facility Department ID 2022-06-06 2022-06-06 Emergency X DOLORES HENDRIX ERT [id number] Univers 02:10:00 08:08:00 NIK salazar [facility] 2022-06-06 2022-06-06 Emergency DOLORES Hendrix [id number] Univers 02:10:00 08:08:00 Nik PALACIO [id number] i ty kimberly SMITH [id number] [facility] [id number] [facility] 084 Branch Results Test Description Test [...] 33.8 g/dL 31.6-35.1 RDW-SD (test code = 85419-3) 44.5 fL 39.0-49.9 RDW-CV (test code = 788-0) 12.9 % 12.0-15.5 PLT (test code = 777-3) See_Comment [Au tomated message] The system which ge nerated this result transmit tawanda reference range: 166 - 35 8 10*3/?L. The reference range was not used to interpret th is result as normal/abnormal . MPV (test code = 59840-4) 9.6 fL 9.5-12.9 NRBC/100 WBC (test code = See_Comment [ Automated message] The [id number]) system which ge nerated this result transmit tawanda reference range: 0.0 - 10 .0 /100 WBCs. The reference r ling was not used to interpr et this result as normal/abnor mal. NRBC x10^3 (test code = See_Comment [Au tomated message] The [id number]) system which ge nerated this result transmit tawanda reference range: 10*3/?L. The reference range was not u sed to interpret this result as normal/abnormal . GRAN MAT (NEUT) % (test code 46.3 % = 770-8) IMM GRAN % (test code = 0.70 % [id number]) LYMPH % (test code = 736-9) 42.5 % MONO % (test code = 5905-5) 5.6 % EOS % (test code = 713-8) 4.0 % BASO % (test code = 706-2) 0.9 % GRAN MAT x10^3(ANC) (test 4.43 10*3/uL 1.88-7.09 code = 0401290128) IMM GRAN x10^3 (test code = 0.07 10*3/uL 0.00-0.06 H 6015728557) LYMPH x10^3 (test code = 4.08 10*3/uL 1.32-3.29 H 731-0) MONO x10^3 (test code = 0.54 10*3/uL 0.33-0.92 742-7) EOS x10^3 (test code = 0.38 10*3/uL 0.03-0.39 711-2) BASO x10^3 (test code = 0.09 10*3/uL 0.01-0.07 H 704-7) Lab Interpretation (test Abnormal code = 22280-5) [facility] [id number] 08:56:34 Test Item Value Reference Range Interpretation Comments PREG SERUM (test code Negative = 4541245676) UYEN (test code = UYEN) Less than 10 IU/L. ?If low titer or ectopic is suspected, resubmit specimen in 48-72 hours. [facility] 08[facility]53:18 Test Item Value Reference Range Interpretation Comments ALCOHOL (test code = 291 mg/dL 7384122488) UYEN (test code = UYEN) <10 [id number] Toxic>100 Depression of FORM RAISER>400 Fatalities Reported [facility]. METABOLIC PANEL ([id number])2022-06-06 08:52:57 Test Item Value Reference Range Interpretation Comments NA (test code = 147 mmol/L 135-145 H 9507761055) K (test code = 4.8 mmol/L 3.5-5.0 5822593968) CL (test code = 112 mmol/L 98-108 H 0314752623) CO2 TOTAL (test code = 19 mmol/L 23-31 L 6600170188) AGAP (test code = 2-16 2992177603) BUN (test code = 11 mg/dL 7-23 0876534508) GLUCOSE (test code = 110 mg/dL 70-110 2217516660) CREATININE (test code = 0.82 mg/dL 0.50-1.04 9446719742) TOTAL BILI (test code = 0.6 mg/dL 0.1-1.7 1638613432) CALCIUM (test code = 9.0 mg/dL 8.6-10.6 7903869114) T PROTEIN (test code = 8.0 g/dL 6.3-8.2 0495459981) ALBUMIN (test code = 5.1 g/dL 3.5-5.0 H 0456047684) ALK PHOS (test code = 97 U/L 34-122 3764242022) ALTv (test code = 33 U/L 5-35 1742-6) AST(SGOT) (test code = 77 U/L 13-40 H 0769512017) eGFR (test code = mL/min/1.73m2 7540993787) UYEN (test code = UYEN) Association of [...] tests). Lab Interpretation Abnormal (test code = 17388-0) [facility]"
--- NOTE | 2023-02-11 12:31 | ER ---
Nurse's Notes [facility] Name: Guerda Cooper Age: 32 yrs Sex: Female : 1990 Arrival Date: 02/11/2023 Time: 11:35 Bed DIS1 Private MD: Diagnosis: Nausea with vomiting, unspecified Presentation: 02/11 12:21 Chief complaint: Patient states: achy bones, vomiting since Saturday , no fever or iw chills, her niece had a stomach bug. Coronavirus screen: Client presents with at least one sign or symptom that may indicate coronavirus-19. Ebola Screen: Patient negative for fever greater than or equal to 101.5 degrees Fahrenheit, and additional compatible Ebola Virus Disease symptoms Patient denies exposure to infectious person. Patient denies travel to an Ebola-affected area in the 21 days before illness onset. No symptoms or risks identified at this time. Initial Sepsis Screen: Does the patient meet any 2 criteria? No. Patient's initial sepsis screen is negative. Does the patient have a suspected source of infection? No. Patient's initial sepsis screen is negative. Risk Assessment: Do you want to hurt yourself or someone else? Patient reports no desire to harm self or others. Onset of symptoms was February 09, 2023. 12:21 Method Of Arrival: Ambulatory iw 12:21 Acuity: PRABHU 3 iw Triage Assessment: 12:40 Headache History: The patient has had previous headaches and this one is similar to iw previous episodes. General: Appears in no apparent distress. General: Appears Behavior is calm, cooperative. Pain: Denies pain. Pain Pain began Also complains of no other associated symptoms. 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 - Family history:: not pertinent. - Social history:: Smoking status: unknown. - Hospitalizations: : No recent hospitalization is reported. Screenin:50 [facility] ED Fall Risk Assessment (Adult) Score/Fall Risk Level 0 - 2 = Low Risk. Abuse iw screen: Denies threats or abuse. Denies injuries from another. Nutritional screening: No deficits noted. Tuberculosis screening: No symptoms or risk factors identified. Assessment: 12:33 General: Appears in no apparent distress. Pain: Denies pain. Neuro: Level of iw Consciousness is awake, alert, obeys commands, Oriented to person, place, time, situation, Moves all extremities. Full function. Cardiovascular: Patient's skin is warm and dry. Respiratory: Respiratory effort is even, unlabored, Respiratory pattern is regular, symmetrical. Derm: Skin is intact, is healthy with good turgor. Vital Signs: 12:21 BP 138 / 85; Pulse 93; Resp 16; Temp 99; Pulse Ox 99% on R/A; iw ED Course: 11:39 Patient arrived in ED. mg5 12:22 Triage completed. iw 12:22 Arm band placed on. iw 12:23 Axel Gupta MD is Attending Physician. rn 12:28 Margarita Navarrete RN is Primary Nurse. iw 12:35 Patient has correct armband on for positive identification. iw 12:50 No provider procedures requiring assistance completed. IV discontinued, intact, iw bleeding controlled, No redness/swelling at site. Pressure dressing applied. Administered Medications: 12:30 Drug: Ondansetron Oral Disintegrating Tablet Oral Disintegrating Tablet 4 mg Route: PO; iw 12:40 Follow up: Response: No adverse reaction iw Medication: 12:35 VIS not applicable for this client. iw Outcome: 12:31 Discharge ordered by . rn 12:50 Discharged to home ambulatory. iw 12:50 Condition: good 12:50 Discharge instructions given to patient, Instructed on discharge instructions, follow up and referral plans. Demonstrated understanding of instructions, follow-up care, medications, Prescriptions given X 1. 12:51 Patient left the ED. iw Signatures: Margarita Navarrete, TESFAYE CARLIN iw Axel Gupta MD MD rn [place], [place] mg5
--- NOTE | 2023-02-11 12:31 | EDPHYS ---
Physician Documentation [facility] Name: Guerda Cooper Age: 32 yrs Sex: Female : 1990 Arrival Date: 02/11/2023 Time: 11:35 Bed DIS1 Private MD: ED Physician Axel Gupta HPI: 02/11 12:27 This 32 yrs old Female presents to ER via Ambulatory with complaints of rn nausea/vomiting/diarrhea. 12:28 The patient presents to the emergency department with nausea, vomiting, diarrhea. rn Onset: The symptoms/episode began/occurred 3 day(s) ago. Possible causes: sick contacts, by family. The symptoms are aggravated by nothing. The symptoms are alleviated by nothing. Associated signs and symptoms: Pertinent positives: diarrhea, nausea, vomiting, Pertinent negatives: abdominal pain, fever, GI bleeding. Severity of symptoms: At their worst the symptoms were mild in the emergency department the symptoms are unchanged. The patient has not experienced similar symptoms in the past. Pt reports multiple family members with identical symptoms, they tested neg for covid/flu, she started getting sick 3 days ago, no abd pain. NO bleeding. . 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 - Family history:: not pertinent. - Social history:: Smoking status: unknown. - Hospitalizations: : No recent hospitalization is reported. ROS: 12:28 Constitutional: + chills Eyes: Negative for injury, pain, redness, and discharge, Neck: rn Negative for injury, pain, and swelling, Cardiovascular: Negative for chest pain, palpitations, and edema, Respiratory: Negative for shortness of breath, cough, wheezing, and pleuritic chest pain, Abdomen/GI: + nausea/vomiting/diarrhea Back: Negative for injury and pain, : Negative for injury, bleeding, discharge, and swelling, MS/Extremity: Negative for injury and deformity, Skin: Negative for injury, rash, and discoloration, Neuro: + generalized weakness Exam: 12:28 Constitutional: This is a well developed, well nourished patient who is awake, alert, rn and in no acute distress. ENT: dry MM Cardiovascular: Regular rate and rhythm. No pulse deficits. Respiratory: No increased work of breathing, no retractions or nasal flaring. Abdomen/GI: soft, non-tender Skin: Warm, dry MS/ Extremity: Pulses equal, no cyanosis. Neuro: Awake and alert, GCS 15 Vital Signs: 12:21 BP 138 / 85; Pulse 93; Resp 16; Temp 99; Pulse Ox 99% on R/A; iw MDM: 12:23 Patient medically screened. rn 12:28 Differential diagnosis: viral gastroenteritis, gastroenteritis. Data reviewed: vital rn signs, nurses notes. Refusal of service: The patient/guardian displays adequate decision making capability and despite a detailed discussion of alternatives, benefits, risks, and consequences refuses: CT Scan, all lab tests. ED course: Pt does not want anything done, wants to go home, requests nausea medication and discharge. . Administered Medications: 12:30 Drug: Ondansetron Oral Disintegrating Tablet Oral Disintegrating Tablet 4 mg Route: PO; iw 12:40 Follow up: Response: No adverse reaction iw Disposition Summary: 02/11/23 12:31 Discharge Ordered Location: Home rn Problem: new rn Symptoms: have improved rn Condition: Stable rn Diagnosis - Nausea with vomiting, unspecified rn Followup: rn - With: Private Physician - When: As needed - Reason: Recheck today's complaints, Re-evaluation by your physician Discharge Instructions: - Discharge Summary Sheet rn - Nausea and Vomiting, Adult rn Forms: - Work release form iw - Medication Reconciliation Form rn - Thank You Letter rn - Antibiotic access rn - Prescription Opioid Use rn - Patient Portal Instructions rn - Leadership Thank You Letter rn Prescriptions: - ondansetron 4 mg Oral Tablet,disintegrating - take 1 tablet by ORAL route every 8 hours As needed; 12 tablet; Refills: 0, rn Product Selection Permitted Signatures: Margarita Navarrete RN RN iw Axel Gupta MD MD rn
[2023-02-11] MEDS ORDERED: ONDANSETRON 4 MG (ODT) TAB ONE (12:40)
[2023-02-11 13:03] VITALS: BP 138/85; TEMP 99; O2SAT 99
== END 2023-02-11 12:51 | disposition home or self-care (01) ==
LOC: ER 11:35
DX: R11.2 Nausea with vomiting, unspecified (principal)
CPT/HCPCS: 99283; Q0162